=== PATIENT | female | born 1970 | race Caucasian/White ===

== ENCOUNTER 2024-11-19 10:15 | Inpatient (IN) | payer MEDICAID ==
[~2024-11-19] VITALS: Ht 172.7 cm; Wt 62.2 kg
[~2024-11-19 10:15] MED LIST: CEPH500C PO; CYAN500T25 PO; FLUC200T50 PO; SPIR25TA PO
--- NOTE | 2024-11-19 10:34 | ED.PDOC ---
GI ASSESSMENT HPI Comments 54-year-old female with PMHx COPD, HTN, CVA, Renal Stones brought in by EMS presents with a chief complaint of abdominal pain and constipation. Patient states that her pain is localized to her LLQ, radiates "all over", describes her pain as sharp and intermittent, and rates her pain a 4/10. Patient mentions that she has been constipated for x 28 days, but reports having a little bowel movement recently. Patient endorses drinking alcohol today and smoking marijuana prior to EMS arrival. Patient also smokes cigarettes. No other symptoms or modifying factors present at this time. Chief Complaint: Abdominal Pain Time Seen by MD: 10:20 Reviewed Notes: Nurses Notes, Medications, Allergies Allergies: Coded Allergies: Codeine (Verified Allergy, Unknown, 06/30/24) Home Meds Active Scripts Cephalexin Monohydrate (Cephalexin) 500 Mg Cap, 1 CAP PO TID for 7 Days, #21 CAP Prov:YECENIA RILEY MD 07/03/24 Fluconazole (Fluconazole) 200 Mg Tab, 200 MG PO DAILY for 7 Days, #7 TAB Prov:YECENIA RILEY MD 07/03/24 Cyanocobalamin (Vitamin B-12) 500 Mcg Tab, 500 MCG PO DAILY for 30 Days, #30 TAB 3 Refills Prov:YECENIA RILEY MD 07/03/24 Spironolactone (Aldactone) 25 Mg Tab, 50 MG PO DAILY for 30 Days, #30 TAB 3 Refills Prov:YECENIA RILEY MD 07/03/24 Information Source: Patient, Emergency Med Personnel Mode of Arrival: EMS Timing: Days Duration: Since onset Prehospital treatment: None Quality: Sharp Vomitus: None Stool: Impaction Severity: Moderate Recent: None Recent Hx of: None Pain Location: LLQ Associated sign and symptoms: Constipation, Abdominal Pain Past Medical History PAST MEDICAL HISTORY: Arthritis, COPD, CVA, Kidney Stones, UTI'S 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: Denies all 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 Hx Family History Family History: Unknown Social History Smoker: Cigarettes Alcohol: Heavy Drugs: Marijuana Lives In: Home Constitutional: denies: chills, diaphoresis, fatigue, fever, malaise, sweats, weakness, others EENTM: denies: blurred vision, double vision, ear bleeding, ear discharge, ear drainage, ear pain, ear ringing, eye pain, eye redness, hearing loss, mouth pain, mouth swelling, nasal discharge, nose bleeding, nose congestion, nose pain, photophobia, tearing, throat pain, throat swelling, voice changes, others Respiratory: denies: cough, hemoptysis, orthopnea, SOB at rest, shortness of breath, SOB with excertion, stridor, wheezing, others Cardiovascular: denies: chest pain, dizzy spells, diaphoresis, Dyspnea on exertion, edema, irregular heart beat, left arm pain, lightheadedness, palpitations, PND, syncope, others Gastrointestinal: reports: abdominal pain, constipated; denies: abdomen distended, blood streaked bowels, diarrhea, dysphagia, difficulty swallowing, hematemesis, melena, nausea, poor appetite, poor fluid intake, rectal bleeding, rectal pain, vomiting, others Genitourinary: denies: abnormal vagina bleeding, burning, dyspareunia, dysuria, flank pain, frequency, hematuria, incontinence, pain, , vagina discharge, urgency, others Neurological: denies: dizziness, fainting, headache, left sided numbness, left sided weakness, numbness, paresthesia, pre-existing deficit, right sided numbness, right sided weakness, seizure, speech problems, tingling, tremors, weakness, others Musculoskeletal: denies: back pain, gout, joint pain, joint swelling, muscle pain, muscle stiffness, neck pain, others Integumetry: denies: bruises, change in color, change in hair/nails, dryness, laceration, lesions, lumps, rash, wounds, others Allergic/Immunocompromised: denies: Difficulty Healing, Frequent Infections, Hives, Itching, others Hematologic/Lymphatic: denies: anemia, blood clots, easy bleeding, easy bruising, swollen glands, others Endocrine: denies: excessive hunger, excessive sweating, excessive thirst, excessive urination, flushing, intolerance to cold, intolerance to heat, unexplained weight gain, unexplained weight loss, others Psychiatric: denies: anxiety, bipolar disorder, depression, hopeless, panic disorder, schizophrenia, sleepless, suicidal, others All Other Systems: Reviewed and Negative Physical Exam General Appearance: Moderate Distress HEENT: Normal ENT Inspection, Pharynx Normal, TMs Normal Neck: Full Range of Motion, Non-Tender, Normal, Normal Inspection Respiratory: Chest Non-Tender, Lungs Clear, No Accessory Muscle Use, No Respiratory Distress, Normal Breath Sounds Cardiovascular: No Edema, No JVD, No Murmur, No Gallop, Normal Peripheral Pulses, Regular Rate/Rhythm Breast Exam: Deferred Gastrointestinal: LLQ, No Organomegaly, No Pulsatile Mass, Normal Bowel Sounds, RLQ, Soft, Tenderness Genitalia: Deferred Pelvic: Deferred Rectal: Deferred Extremities: No calf tenderness, Normal capillary refill, Normal inspection, Normal range of motion, Non-tender, No pedal edema Musculoskeletal : Apperance: Normal Neurologic: Alert, gang worker II-XII nml as Tested, No Motor Deficits, Normal Affect, Normal Mood, No Sensory Deficits Cerebellar Function: Normal Reflexes: Normal Skin: Dry, Normal Color, Warm Lymphatic: No Adenopathy EKG EKG : Pulse Rate (adult): 91 [place]: LAD Cardiac Rhythm: NSR Block: None Hypertrophy: None ST: Normal Was a procedure done? Was a procedure done?: No GI differential Dx Differential Diagnosis: Cholangitis, Cholecystitis, Diverticular disease, Gastritis/PUD, Gastroenteritis, Inflammatory BD, Ischemic Bowel, Electrolyte Imbalance, Food Poisoning X-Ray, Labs, Meds, VS Vital Signs Date Time Temp Pulse Resp B/P (MAP) Pulse Ox O2 Delivery O2 Flow Rate FiO2 11/19/24 14:05 121 18 136/95 11/19/24 13:32 121 18 95 Room Air* 0 21 11/19/24 13:29 97.9 121 18 106/57 (73) 99 97.9 11/19/24 10:34 91 11/19/24 10:27 91 11/19/24 10:26 97.6 79 16 99/60 (73) 98 Lab Test 11/19/24 10:42 Range/Units White Blood Count 6.3 4.4-10.8 10^3/uL Red Blood Count 4.23 4.0-5.20 10^6/uL Hemoglobin 15.1 12.2-16.2 g/dL Hematocrit 44.8 36.0-46.0 % Mean Corpuscular Volume 105.9 H 80.0-100.0 fL Mean Corpuscular Hemoglobin 35.6 H 28.0-32.0 pg Mean Corpuscular Hemoglobin Concent 33.6 32.0-36.0 g/dL Red Cell Distribution Width 14.1 11.8-14.3 % Platelet Count 207 140-450 10^3/uL Mean Platelet Volume 7.6 6.9-10.8 fL Neutrophils (%) (Auto) 74.3 37.0-80.0 % Lymphocytes (%) (Auto) 14.4 10.0-50.0 % Monocytes (%) (Auto) 9.8 0.0-12.0 % Eosinophils (%) (Auto) 1.0 0.0-7.0 % Basophils (%) (Auto) 0.5 0.0-2.0 % Neutrophils # (Auto) 4.7 1.6-8.6 10 ^3/uL Lymphocytes # (Auto) 0.9 0.4-5.4 10 ^3/uL Monocytes # (Auto) 0.6 0-1.3 10 ^3/uL Eosinophils # (Auto) 0.1 0-0.8 10 ^3/uL Basophils # (Auto) 0 0-0.2 10 ^3/uL Nucleated Red Blood Cells 0.2 % Sodium Level 130 L 136-145 mmol/L Potassium Level 2.9 L 3.5-5.1 mmol/L Chloride Level 89 L 98-107 mmol/L Carbon Dioxide Level 30 20-31 mmol/L Anion Gap 11 5-15 Blood Urea Nitrogen 9 9-23 mg/dL Creatinine 0.55 0.550-1.02 mg/dL Glomerular Filtration Rate Calc 108 >90 mL/min BUN/Creatinine Ratio 16.4 10.0-20.0 Serum Glucose 94 74-106 mg/dL Calcium Level 10.2 8.7-10.4 mg/dL Total Bilirubin 0.8 0.2-1.0 mg/dL Aspartate Amino Transferase (AST) 24 13-40 U/L Alanine Aminotransferase (ALT) 13 7-40 U/L Alkaline Phosphatase 74 46-116 U/L Total Protein 7.4 5.7-8.2 g/dL Albumin 4.4 3.2-4.8 g/dL Lipase 24 12-53 U/L Current Medications Medications (Trade) Dose Ordered Sig/Kaya Route Start Time Stop Time Status Last Admin Ondansetron HCl (Zofran) 4 mg ONCE ONCE IV 11/19/24 10:30 11/19/24 10:31 DC 11/19/24 13:20 Morphine Sulfate 4 mg ONCE ONCE IV 11/19/24 10:30 11/19/24 10:31 DC 11/19/24 14:05 Sodium Chloride 500 ml @ 500 mls/hr Q1H ONCE IVB 11/19/24 10:30 11/19/24 11:29 DC 11/19/24 13:20 CT scan of the abdomen and pelvis shows: IMPRESSION: 1. No acute abdominal or pelvic findings. No hydronephrosis or nephrolithiasis. Cholelithiasis. Avascular necrosis of the bilateral femoral heads. The patient's CBC is within normal limits IV Hep-Lock was established The patient was given morphine 4 mg IV push for the pain The patient was given Zofran 4 mg IV push for the nausea The patient was bolused with normal saline at 500 cc The patient's CBC is within normal limits The chemistry panel shows hypokalemia at 2.9 The chloride level is 89 The patient was being admitted at this time. The patient was being given potassium as a K rider Images Reviewed?: Images reviewed and evaluated by me Time of 1ST Reevaluation: 10:50 Reevaluation 1ST: Unchanged Patient Education/Counseling: Diagnosis, Treatment, Prognosis Family Education/Counseling: Diagnosis, Treatment, Prognosis Departure 1 Departure Time of Disposition: 14:30 Impression: Primary Impression: Intractable abdominal pain Additional Impression: Hypokalemia Disposition: 09 ADMITTED INPATIENT Admit to: [facility] Condition: Fair Critical Care Note Critical Care Time?: No Stability Stability form required: Yes Unstable for transfer: Telemetry monitoring (Telemetry monitoring required), ED Physician Assesment (Clinical assesment) Heart Score Heart Score: Heart Score Response (Comments) Value History N/A 0 EKG N/A 0 Age N/A 0 Risk Factors N/A 0 Troponin N/A 0 Total 0 I personally scribed for RASHARD DIAZ MD ([email or web address]) on 11/19/24 at 10:34. Electronically submitted by Ciro Reich ([email or web address]). RASHARD DIAZ MD Nov 19, 2024 10:34
[2024-11-19 11:11] LABS: Basophils # (auto) 0 10 ^3/uL (0-0.2); Eosinophils # (auto) 0.1 10 ^3/uL (0-0.8); Hemoglobin 15.1 g/dL (12.2-16.2); Monocytes # (auto) 0.6 10 ^3/uL (0-1.3); Neutrophils # (auto) 4.7 10 ^3/uL (1.6-8.6); Nucleated Red Blood Cells % 0.2 %; White Blood Cell 6.3 10^3/uL (4.4-10.8)
[2024-11-19 11:13] LABS: Basophils % (auto) 0.5 % (0.0-2.0); Hematocrit 44.8 % (36.0-46.0); Lymphocytes # (auto) 0.9 10 ^3/uL (0.4-5.4); Lymphocytes % (auto) 14.4 % (10.0-50.0); Mean Corpuscular Hemoglobin 35.6 pg (28.0-32.0); Mean Corpuscular Hgb Conc. 33.6 g/dL (32.0-36.0); Mean Corpuscular Volume 105.9 fL (80.0-100.0); Monocytes % (auto) 9.8 % (0.0-12.0); Neutrophils % (auto) 74.3 % (37.0-80.0); Platelet Count (auto) 207 10^3/uL (140-450); Red Blood Cells 4.23 10^6/uL (4.0-5.20); Red Cell Distribution Width 14.1 % (11.8-14.3)
--- NOTE | 2024-11-19 11:14 | DVH ---
Exam: CT CT AB PEL WO CON-NO ORAL OR IV History: LLQ PAIN Comparison Study: None Technique: Multidetector spiral CT of the abdomen and pelvis was performed from lung bases to pubic symphysis. Imaging was performed without IV contrast. Axial, coronal and sagittal multiplanar reform ats were obtained from the axial data set by the technologist. Radiation dose : Abdomen/Pelvis: CTDIvol 5 mGy, DLP 264.42 mGy*cm. Findings: Evaluation of solid organs is limited due to lack of intravenous contrast use. Lung Bases: No acute or significant lung base finding. Normal heart size. No pleural or pericardial effusion. Liver: The liver is normal in size. No focal lesions. Gallbladder and biliary Tree: Cholelithiasis noted without secondary findings of cholecystitis or nick iary obstruction. Spleen: Unremarkable Pancreas: The pancreas is grossly normal in appearance. Adrenal Glands: Unremarkable Kidneys: Kidneys are grossly normal without calculi or hydronephrosis. Bladder: Bladder is decompressed with a Dorman catheter and cannot be adequately assessed. Bowel: The stomach is grossly normal in appearance. Small bowel and colon are normal in caliber and d istribution. The appendix is not visualized; however, no secondary findings of acute appendicitis id entified. Ascites: Absent Lymphadenopathy: No mesenteric, retroperitoneal or periportal lymphadenopathy. Abdominal wall and Mesentery: Unremarkable. Vasculature: The visualized abdominal aorta is normal in size and caliber. Evaluation of abdominal a nd pelvic vessels is limited due to lack of intravenous contrast. Pelvic Organs: Unremarkable Musculoskeletal: Levoscoliosis with associated multilevel degenerative disease. Suspect avascular nec rosis of the bilateral femoral heads. IMPRESSION: 1. No acute abdominal or pelvic findings. No hydronephrosis or nephrolithiasis. Cholelithiasis. Avasc ular necrosis of the bilateral femoral heads. Radiation optimization: All CT scans at this facility use at least one of these dose optimization lita hniques: Automated exposure control mA and/or kV adjustment per patient size (includes targeted exams where dose is matched to clinical indication) or iterative reconstruction. HS:Y
[2024-11-19 11:31] LABS: Alanine Aminotransferase 13 U/L (7-40); Albumin 4.4 g/dL (3.2-4.8); Alkaline Phosphatase 74 U/L (46-116); Anion Gap 11 (5-15); Aspartate Aminotransferase 24 U/L (13-40); BUN/Creatinine Ratio 16.4 (10.0-20.0); Blood Urea Nitrogen 9 mg/dL (9-23); Glucose 94 mg/dL (74-106)
[2024-11-19 11:32] LABS: Bilirubin, Total 0.8 mg/dL (0.2-1.0); Total Protein 7.4 g/dL (5.7-8.2)
[2024-11-19 11:40] LABS: Calcium 10.2 mg/dL (8.7-10.4); Carbon Dioxide 30 mmol/L (20-31); Chloride 89 mmol/L (98-107); Potassium 2.9 mmol/L (3.5-5.1); Sodium 130 mmol/L (136-145)
[2024-11-19 12:16] LABS: Lipase 24 U/L (12-53)
[2024-11-19] MEDS: SODIUM CHLORIDE 0.9% 500 ML IVB ONE (13:20)
[2024-11-19] MEDS: ONDANSETRON HCL 4 MG/2 ML VIAL IV ONE (13:20)
[2024-11-19 13:32] VITALS: PULSE 121; RESP 18; O2SAT 95
[2024-11-19] MEDS: MORPHINE SULFATE 4 MG/ML SYR/VIAL IV ONE (14:05)
--- NOTE | 2024-11-19 19:02 | ECG ---
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
[2024-11-19] MEDS: POTASSIUM CHL 20MEQ/100ML 100 ML IV ONE (20:33)
[2024-11-19] MEDS ORDERED: ONDANSETRON HCL 4 MG/2 ML VIAL IV PRN (22:30)
[2024-11-19] MEDS ORDERED: VANCOMYCIN PER PHARMACY 0 MG IV SCH (22:30)
--- NOTE | 2024-11-19 22:38 | DVHHPRES ---
History of Present Illness Resident Creating Document: JOHN GALLO RESIDENT Reason for Visit: ABDOMINAL PAIN AND CONSTIPATION History of Present Illness This is a 54-year-old female who comes into the ED with chief complain of abdominal pain and constipation. She has a past medical history relevant for COPD, hypertension, CVA 20 years ago, bed-bound, kidney stones, recurrent UTIs. Patient states been a heavy drinker, heavy nicotine smoker, previous abuse of cannabis and methamphetamines. She has a history of tubal ligation and spinal surgery. Patient stated that for the last three days she has been experiencing worsening abdominal pain, mainly suprapubic, sharp, fluctuating from mild to severe, localized, nonradiating, associated with dysuria, urinary frequency and urgency. She also stated not having a bowel movement in the last 20 days due to being constipated. She also mentions having chills, nausea, malaise. Patient also endorses having left foot pain most prominent on hallux, along with purulent drainage, bilateral leg swelling, redness. In the ED patient received morphine, Zofran IV, normal saline, potassium IV, she has not abdominal CT which demonstrated cholelithiasis, bilateral avascular necrosis of femoral head. Patient was admitted for further workup and management. 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: CVA Past Surgical History Spinal surgery Smoke: <1 pack per day ALCOHOL: heavy Drugs: Marijuana Review of Systems Constitutional: Yes: Chills, Malaise; No: Fever, Sweats, Weakness, Other Eyes: No: Pain, Vision change, Conjunctivae inflammation, Eyelid inflammation, Other, Redness ENT: No: Ear pain, Ear discharge, Nose pain, Nose discharge, Nose congestion, Mouth pain, Mouth swelling, Throat pain, Throat swelling, Other Respiratory: No: Cough, Dry, Shortness of breath, SOB with excertion, Wheezing, Hemoptysis, Pleuritic Pain, Sputum, Wheezing, Other Cardiovascular: Edema; No: Chest Pain, Palpitations, Orthopnea, Paroxysmal Noc. Dyspnea, Lt Headedness, Other Gastrointestinal: Nausea, Abdominal Pain, Constipation; No: Vomiting, Diarrhea, Melena, Hematochezia, Other Genitourinary: Dysuria, Frequency, Incontinence; No Hematuria, No Retention, No Other Musculoskeletal: No: other, neck pain, shoulder pain, arm pain, back pain, hand pain, leg pain, foot pain Skin: Rash, Lesions; No: Jaundice, Bruising, Other Neurological: No: Weakness, Numbness, Incoordination, Change in speech, Confusion, Seizures, Other Allergies: Coded Allergies: Codeine (Verified Allergy, Unknown, 06/30/24) Exam Vital Signs Vital Signs Date Time Temp Pulse Resp B/P (MAP) Pulse Ox O2 Delivery O2 Flow Rate FiO2 11/19/24 16:22 98.1 115 20 114/68 (83) 98 98.1 11/19/24 13:32 Room Air* 0 21 Exam Bilateral lower extremity edema, redness, dry scaly skin, left hallux is tender to palpation, draining purulent fluid General Appearance: Alert, Oriented X3, Cooperative, No acute distress HEENT: Atraumatic, PERRLA, EOMI Respiratory: Clear to auscultation, Normal air movement Cardiovascular: Regular rate, Normal S1, Normal S2, No murmurs Abdominal: Normal bowel sounds, Soft, Other (Suprapubic tenderness) Extremities: No clubbing, No cyanosis, Other (Bilateral lower extremity edema plus two) Neuro: Other Psych/Mental Status: Mental status NL, Mood NL Labs/Xrays Labs Test 11/19/24 10:42 Range/Units White Blood Count 6.3 4.4-10.8 10^3/uL Red Blood Count 4.23 4.0-5.20 10^6/uL Hemoglobin 15.1 12.2-16.2 g/dL Hematocrit 44.8 36.0-46.0 % Mean Corpuscular Volume 105.9 H 80.0-100.0 fL Mean Corpuscular Hemoglobin 35.6 H 28.0-32.0 pg Mean Corpuscular Hemoglobin Concent 33.6 32.0-36.0 g/dL Red Cell Distribution Width 14.1 11.8-14.3 % Platelet Count 207 140-450 10^3/uL Mean Platelet Volume 7.6 6.9-10.8 fL Neutrophils (%) (Auto) 74.3 37.0-80.0 % Lymphocytes (%) (Auto) 14.4 10.0-50.0 % Monocytes (%) (Auto) 9.8 0.0-12.0 % Eosinophils (%) (Auto) 1.0 0.0-7.0 % Basophils (%) (Auto) 0.5 0.0-2.0 % Neutrophils # (Auto) 4.7 1.6-8.6 10 ^3/uL Lymphocytes # (Auto) 0.9 0.4-5.4 10 ^3/uL Monocytes # (Auto) 0.6 0-1.3 10 ^3/uL Eosinophils # (Auto) 0.1 0-0.8 10 ^3/uL Basophils # (Auto) 0 0-0.2 10 ^3/uL Nucleated Red Blood Cells 0.2 % Sodium Level 130 L 136-145 mmol/L Potassium Level 2.9 L 3.5-5.1 mmol/L Chloride Level 89 L 98-107 mmol/L Carbon Dioxide Level 30 20-31 mmol/L Anion Gap 11 5-15 Blood Urea Nitrogen 9 9-23 mg/dL Creatinine 0.55 0.550-1.02 mg/dL Glomerular Filtration Rate Calc 108 >90 mL/min BUN/Creatinine Ratio 16.4 10.0-20.0 Serum Glucose 94 74-106 mg/dL Calcium Level 10.2 8.7-10.4 mg/dL Total Bilirubin 0.8 0.2-1.0 mg/dL Aspartate Amino Transferase (AST) 24 13-40 U/L Alanine Aminotransferase (ALT) 13 7-40 U/L Alkaline Phosphatase 74 46-116 U/L Total Protein 7.4 5.7-8.2 g/dL Albumin 4.4 3.2-4.8 g/dL Lipase 24 12-53 U/L Assessment/Plan Assessment/Plan #Abdominal pain due to UTI, constipation Rocephin IV q.d. Pending UA and urine culture Admit to med surge Full liquid diet Pain management p.r.n. #Constipation Dulcolax Lactulose Tap water enema #Cellulitis of both lower legs #Left hallux ulcer, rule out osteomyelitis #Sacral ulcer stage II Vancomycin IV Wound culture Wound consult MRSA swab Reviewed CT on left foot, ordered MRI Order CRP and ESR Lower extremity Doppler ruled out DVT #Hypokalemia Monitor and replete Pending magnesium #Hypotonic hyponatremia Normal saline given #Cholelithiasis, no cholecystitis Monitor #Hypertension, controlled Monitor #COPD, stable DuoNebs q.6 hours p.r.n. #History of CVA #Bed-bound Prophylactic Lovenox #Avascular necrosis of bilateral femoral heads Monitor #Heavy alcohol abuse #Heavy smoker #History of polysubstance abuse UDS pending Pending phosphate Counseled on lifestyle modifications Goals of care were discussed for over 30 minutes. Full code Case was discussed with Dr. Kaba Plan discussed with: Patient My Orders Orders - JOHN GALLO RESIDENT Procedure Category Date Status Time Admit ADMIT 11/19/24 Transmitted 22:12 Notify Of Changes MAREK 11/19/24 In Process From Base 22:12 Full Liq Diet DIET 11/20/24 Transmitted Breakfast Urinalysis LAB 11/19/24 Transmitted 22:19 Urine Bacterial KAM 11/19/24 Transmitted Culture 22:19 Bilat Lower Dvt US 11/19/24 Logged 22:19 Erythrocyte LAB 11/19/24 Transmitted Sedimentation Rate 22:19 C-Reactive Protein LAB 11/19/24 Transmitted 22:19 Ct L Foot Wo Contrast CT 11/19/24 Logged 22:19 Wound Culture W/ Gs KAM 11/19/24 Transmitted 22:19 * Wound Consult CONS 11/19/24 Transmitted Potassium Er Tablet PHA 11/19/24 Transmitted (Klor-Con Tablet) 22:30 Magnesium LAB 11/19/24 Transmitted 22:19 Thyroid Stimulating LAB 11/19/24 Transmitted Hormone 22:19 Complete Blood Count LAB 11/20/24 Verified 04:00 Basic Metabolic Panel LAB 11/20/24 Verified 04:00 Chest Portable XY 11/19/24 Logged 22:19 Lactulose Oral PHA 11/19/24 Transmitted 22:30 Tap Water Enema ORDERS 11/19/24 Transmitted 22:19 Bisacodyl Ec Tablet PHA 11/19/24 Transmitted (Dulcolax Ec Tablet) 22:30 Ondansetron Hcl PHA 11/19/24 Transmitted (Zofran) 22:30 Vancomycin Per PHA 11/19/24 Transmitted Pharmacy 22:30 Ceftriaxone Ivpb PHA 11/20/24 Transmitted Rocephin 09:00 Ceftriaxone Ivpb PHA 11/19/24 Transmitted Rocephin 22:30 NS PHA 11/19/24 Transmitted 22:30 Mrsa Screen KAM 11/19/24 Transmitted 22:19 Date of Service: Nov 20, 2024 Billing Provider: FRAN KABA MD Common Visit Codes: [id number] INP/OBS CARE (HIGH) JOHN GALLO RESIDENT Nov 19, 2024 22:38 FRAN KABA MD Nov 23, 2024 14:44
[2024-11-19] MEDS: SODIUM CHLORIDE 0.9% 1,000 ML IV ONE (22:53)
[2024-11-19 22:57] VITALS: PULSE 102; RESP 16; O2SAT 99
[2024-11-19] MEDS: VANCOMYCIN 1GM/250mL NS or D5W KIT IV ONE (23:00)
--- NOTE | 2024-11-19 23:08 | DVH ---
CHEST RADIOGRAPH Indication: sob Technique: Single frontal view of the chest was obtained COMPARISON: XY CHEST PORTABLE on DOS: 07/01/24 FINDINGS: Lines and Tubes: None Lungs: Clear Pleura: No effusion. No pneumothorax. Cardiomediastinal contours: Unremarkable Bones: Unremarkable IMPRESSION: 1. No acute disease.
[2024-11-19] MEDS: LACTULOSE 20Gm/30ML SOLN PO ONE (23:23)
[2024-11-19] MEDS: cefTRIAXone 1GM/50ML D5W 50 ML IV ONE (23:23)
[2024-11-19] MEDS: BISACODYL 5 MG EC TAB PO ONE (23:23)
[2024-11-19] MEDS: POTASSIUM CHL 20 Meq TABLET PO ONE (23:23)
--- NOTE | 2024-11-19 23:47 | DVH ---
EXAMINATION: CT L FOOT WO CONTRAST INDICATION: cellulitis, r/o osteomyelitis COMPARISON: None TECHNIQUE: CT of the rightleft foot was performed without contrast. Volume transverse images were obt ained reconstructed in multiple planes using bone and soft tissue algorithms. CONTRAST: None FINDINGS: There is a large amount of subcutaneous edema and there is mari fluid along the posterior compartmen t fascia. Foot bones are osteopenic in the amount dorsal fluid and foot is extraordinary. Do not see definite destructive change involving the foot bones but I would highly recommend MRI examination 2 l imited quality osteomyelitis. IMPRESSION: 1. Severe cellulitis. Follow-up MRI examination is suggested further assessment
[2024-11-20] VITALS (11 sets, daily range): BP systolic 99–140; BP diastolic 59–100; PULSE 66–115; RESP 16–19; TEMP 97.1–98.1; O2SAT 93–100
[2024-11-20 00:01] LABS: CRP High Sensitivity 0.7 mg/dL (<1.0)
[2024-11-20 00:16] LABS: Erythrocyte Sedimentation Rate 13 mm/hr (0-20)
--- NOTE | 2024-11-20 00:17 | DVH ---
Bilateral lower extremity venous duplex Clinical History: bilateral leg edema, redness, and pain Comparison: US BILAT LOWER DVT on DOS: 06/30/24 Technique: Duplex doppler evaluation of the deep venous systems of both lower extremities from the common femora l veins to the popliteal veins including color doppler and spectral/pulsed waveform analysis was perf ormed. Findings: RIGHT SIDE: The common femoral vein demonstrates appropriate compressibility and waveform variability. There is compressibility/patency of the great saphenous vein at the proximal thigh. The femoral vein demonstrates appropriate compressibility and waveform variability. The deep femoral vein demonstrates appropriate compressibility and waveform variability. The popliteal vein demonstrates appropriate compressibility and waveform variability. LEFT SIDE: The common femoral vein demonstrates appropriate compressibility and waveform variability. There is compressibility/patency of the great saphenous vein at the proximal thigh. The femoral vein demonstrates appropriate compressibility and waveform variability. The deep femoral vein demonstrates appropriate compressibility and waveform variability. The popliteal vein demonstrates appropriate compressibility and waveform variability. Impression: No evidence of right or left femoropopliteal venous thrombosis.
[2024-11-20] MEDS: ENOXAPARIN SOD 40 MG/0.4 ML SYRINGE SC ONE (00:39)
[2024-11-20] MEDS: KETOROLAC TROMETH 30 MG/ML 1ML VIAL IV ONE (00:40)
[2024-11-20 05:46] LABS: Basophils # (auto) 0 10 ^3/uL (0-0.2); Eosinophils # (auto) 0.1 10 ^3/uL (0-0.8); Hematocrit 35.8 % (36.0-46.0); Hemoglobin 12.3 g/dL (12.2-16.2); Lymphocytes # (auto) 1.2 10 ^3/uL (0.4-5.4); Mean Corpuscular Volume 105.8 fL (80.0-100.0); Monocytes # (auto) 0.5 10 ^3/uL (0-1.3); Nucleated Red Blood Cells % 0.1 %; Red Blood Cells 3.38 10^6/uL (4.0-5.20)
[2024-11-20 05:49] LABS: Basophils % (auto) 0.6 % (0.0-2.0); Eosinophils % (auto) 1.9 % (0.0-7.0); Lymphocytes % (auto) 21.6 % (10.0-50.0); Mean Corpuscular Hemoglobin 36.4 pg (28.0-32.0); Mean Corpuscular Hgb Conc. 34.4 g/dL (32.0-36.0); Monocytes % (auto) 9.1 % (0.0-12.0); Neutrophils # (auto) 3.7 10 ^3/uL (1.6-8.6); Neutrophils % (auto) 66.8 % (37.0-80.0); Platelet Count (auto) 176 10^3/uL (140-450); White Blood Cell 5.6 10^3/uL (4.4-10.8)
[2024-11-20 06:08] LABS: Anion Gap 7 (5-15); Carbon Dioxide 30 mmol/L (20-31)
[2024-11-20 06:11] LABS: Calcium 8.4 mg/dL (8.7-10.4); Chloride 97 mmol/L (98-107); Potassium 3.1 mmol/L (3.5-5.1); Sodium 134 mmol/L (136-145)
[2024-11-20 06:14] LABS: Blood Urea Nitrogen 9 mg/dL (9-23); Glucose 98 mg/dL (74-106)
[2024-11-20 06:16] LABS: Phosphorus 2.7 mg/dL (2.4-5.1)
[2024-11-20] MEDS: LEVALBUTEROL HCL 1.25 MG/3 ML NEB ONE (06:44)
[2024-11-20] MEDS: IPRATROPIUM BROM 0.5 MG/2.5ML INH SOL ONE (06:44)
[2024-11-20] MEDS: IPRATROPIUM BROM 0.5 MG/2.5ML INH SOL NEB PRN (06:48)
[2024-11-20] MEDS: LEVALBUTEROL HCL 1.25 MG/3 ML NEB NEB SCH (06:48)
[2024-11-20 06:56] LABS: Urine Bacteria FEW /hpf (None Seen); Urine Blood 2+ /uL (Negative); Urine Budding Yeast OCCASIONAL /hpf (None Seen); Urine Clarity Cloudy (Clear); Urine Color Yellow (Yellow); Urine Hyphae Yeast PRESENT /hpf; Urine Mucus FEW (None Seen); Urine Protein, UAD 1+ (Negative); Urine Specific Gravity 1.019 (1.001-1.035); Urine Squamous Epithelial Cell MOD /hpf (<5); Urine Urobilinogen Normal (Negative); Urine WBC 1508 /HPF (0-5); Urine WBC Clumps PRESENT /hpf (None Seen)
[2024-11-20] MEDS: POTASSIUM CHL 20 Meq TABLET PO ONE (07:04)
[2024-11-20 07:17] LABS: Amphetamine Screen, Urine Neg (NEGATIVE); Phencyclidine Screen, Urine Neg (NEGATIVE)
[2024-11-20 07:18] LABS: Barbiturate Scree,Urine Neg (NEGATIVE); Benzodiazephine Screen, Urine Neg (NEGATIVE); Cannabinoid Screen, Urine Pos (NEGATIVE); Cocaine Screen, Urine Neg (NEGATIVE); Opiate Scree,Urine Pos (NEGATIVE)
[2024-11-20] MEDS: VANCOMYCIN 1GM/250ML KIT 0 ML IV ONE (11:17)
[2024-11-20] MEDS ORDERED: LACT10PA2 PO (11:36)
[2024-11-20] MEDS ORDERED: FURO1TAB31 PO (11:36)
[2024-11-20] MEDS ORDERED: NALO1TAB4 PO (11:36)
[2024-11-20] MEDS ORDERED: POTA8TAB38 PO (11:36)
[2024-11-20] MEDS ORDERED: DOCU-94 PO (11:36)
[2024-11-20] MEDS ORDERED: MAGN400T40 PO (11:36)
[2024-11-20] MEDS: FLEET ENEMA(ADULT) 135 ML PR ONE (12:00)
[2024-11-20] MEDS: FLUCONAZOLE 100 MG TAB PO SCH (12:03)
[2024-11-20] MEDS: VANCOMYCIN 1.25GM/250ML 250 ML IV SCH (12:04)
[2024-11-20] MEDS: GABAPENTIN 400 MG CAP PO SCH (16:40)
--- NOTE | 2024-11-20 17:06 | DVH ---
EXAM: MRI MRI L FOOT WO CONTRAST HISTORY: r/o left foot osteomyelitis COMPARISON: CT CT L FOOT WO CONTRAST on DOS: 11/19/24 TECHNIQUE: Multiplanar, multisequence MRI of the left foot was performed. FINDINGS: The visualized osseous structures demonstrate normal cortical and bone marrow signal intensity withou t evidence of fracture, trabecular bony injury, or dislocation. No joint effusion. Hallux sesamoid co mplex is intact. No joint effusion. The Lisfranc ligament is intact. The visualized portions of tibialis posterior, flexor hallucis longus, and flexor digitorum tendons a re intact. Visualized portions of peroneus longus and brevis tendons are intact. Visualized portion s of the tibialis anterior, extensor digitorum, and extensor hallucis tendons are intact. The partially visualized plantar fascia is intact. There is no evidence of intermetatarsal bursitis or Martin's neuroma. No significant muscle atrophy is noted. Severe dorsal soft tissue swelling noted. A 1.6 x 1 cm subcutaneous fluid collection on do rsal aspect of the foot at the level of 1st metatarsal base noted. IMPRESSION: 1. Severe subcutaneous edema/ cellulitis. 2. A 1.6 cm dorsal subcutaneous fluid collection that is incompletely evaluated on this unenhanced st udy. A may reflect seroma, abscess or ganglion cyst. Correlation by ultrasound or contrast enhanced M RI could be completed if clinically indicated. 3. No evidence of acute osteomyelitis.
[2024-11-20] MEDS: ASPirin 81 mg TAB PO ONE (18:20)
[2024-11-20] MEDS: FUROSEMIDE 40 MG TAB PO ONE (18:20)
--- NOTE | 2024-11-20 18:21 | DVHPNRES ---
Progress Note Date Seen: Nov 20, 2024 Resident Creating Document: MAHAMED THOMAS RESIDENT Medical Necessity Reason Pt with a Central, PICC or Fol: Yes The following are medically ne: Dorman Catheter Subjective Review of Systems Patient is a 54-year-old female with a past medical history of COPD, hypertension, paraplegia since 2001 valve bed-bound due to ?spinal abscess/CVA, recurrent UTIs came to the ED with a chief complaint of abdominal pain and constipation. Patient reported that since the last 3 days she has been experiencing worsening abdominal pain mainly suprapubic sharp, fluctuating from mild to severe, localized, nonradiating associated with dysuria. She reported that last bowel movement was 20 in days ago. Patient home takes [place] 7.5 tid but reports to be taking more when she was pain. Patient reports that her legs were also swollen up and she has a wound on the left hallux. Past surgical history: Spinal surgery in 2011, tubal ligation Social history: Patient drinks 1 pt of vodka every day, cigarette smoking previous history of cannabis and methamphetamine use Home medication: Furosemide 40 mg daily, gabapentin 400 mg t.i.d., tizanidine 4 mg q.6 hours, [place] 7.5 mg t.i.d., aspirin Review of systems Patient seen and examined at bedside Reports passing large hard ball of stool about 3 days ago and reports passing flatness currently Denies shortness of breath, palpitations, chest pain, headache, dizziness. Reports pain in the left foot and reports having sacral ulcer. Objective vital signs Vital Sign Date Time Temp Pulse Resp B/P (MAP) Pulse Ox O2 Delivery O2 Flow Rate FiO2 11/20/24 16:47 77 19 99/59 (72) 95 11/20/24 09:07 Room Air* 0 21 11/20/24 09:00 97.1 97.1 Total Intake and Output 11/19/24 11/19/24 11/20/24 15:00 23:00 07:00 Intake Total 100 ml 1300 ml Balance 100 ml 1300 ml medications Current Medications Medications Dose Ordered Sig/Kaya Route Start Time Stop Time Status Last Admin Dose Admin Ondansetron HCl 4 mg Q4HPRN PRN IV 11/19/24 22:30 Vancomycin HCl 0 ml @ 0 mls/hr UD IV 11/19/24 22:30 Ceftriaxone Sodium 50 ml @ 100 mls/hr Q24H IV 11/20/24 21:00 Enoxaparin Sodium 40 mg DAILY SC 11/21/24 10:00 Acetaminophen 650 mg Q6HP PRN PO 11/20/24 00:15 Levalbuterol HCl 0.625 mg Q6HP NEB 11/20/24 06:00 11/20/24 06:48 0.625 MG Ipratropium [place] 0.5 mg Q6HPRN PRN NEB 11/20/24 01:45 11/20/24 06:48 0.5 MG Fluconazole 200 mg DAILY PO 11/20/24 10:00 11/20/24 12:03 200 MG Vancomycin HCl 250 ml @ 200 mls/hr Q12H IV 11/20/24 12:00 11/20/24 12:04 200 MLS/HR Aspirin 81 mg DAILY PO 11/21/24 10:00 Gabapentin 400 mg TID PO 11/20/24 14:00 11/20/24 16:40 400 MG Polyethylene Glycol 17 gm DAILY PO 11/21/24 10:00 Furosemide 40 mg DAILY PO 11/21/24 10:00 Examination Physical Examination Constitutional: Patient is alert and oriented to time, place and person and does not to be in acute distress Gen - no pallor, no icterus, no cyanosis, no clubbing, no LAD, bilateral 2+ pitting edema Skin - Patients skin is warm and dry. HEENT - normocephalic, atraumatic, moist mucous membranes. Neck - full ROM, no LAD, no JVD Pulmonary - B/L decreased breath. no crackles , no wheezing cardiovascular - normal S1,S2 heard. no murmurs heard. GI - soft abdomen without tenderness to palpation . no hepatospleenomegaly. Bowel sounds normoactive Neurological - Bilateral upper extremity strength 5/5, bilateral lower extremity strength 1/5, no facial droop, normal speech, no tremor, no sensory deficiets. laboratory and microbiology Laboratory Tests 11/20/24 04:22 Test 11/20/24 04:22 Range/Units Serum Glucose 98 74-106 mg/dL Microbiology Date/Time Source Procedure Growth Status 11/20/24 01:30 Foot Gram Stain - Final Resulted 11/20/24 01:30 Foot Wound Culture Pending Resulted Problem List/Assessment/Plan Problem List/Assessment/Plan #Abdominal pain due to UTI, constipation # UTI likely acute cystitis Rocephin IV q.d. UA positive for LE and elevated WBC Full liquid diet given oral laxatives fleet enema norco and tizanidine held Pain management p.r.n. #Cellulitis of both lower legs #Left hallux ulcer, rule out osteomyelitis #Sacral ulcer stage II Vancomycin and ceftriaxone IV Wound culture pending Wound consult MRSA swab Reviewed CT on left foot, left foor MRI showed 1.Severe subcutaneous edema/ cellulitis. 2. A 1.6 cm dorsal subcutaneous fluid collection that is incompletely evaluated on this unenhanced study. A may reflect seroma, abscess or ganglion cyst. Correlation by ultrasound or contrast enhanced MRI could be completed if clinically indicated. 3. No evidence of acute osteomyelitis. Lower extremity Doppler ruled out DVT #Hypokalemia Monitor and replete #Hypotonic hyponatremia Normal saline given #Cholelithiasis, no cholecystitis Monitor #Hypertension, controlled Monitor #COPD, stable DuoNebs q.6 hours p.r.n. #History of CVA #Bed-bound Prophylactic Lovenox #Avascular necrosis of bilateral femoral heads Monitor #Heavy alcohol abuse #Heavy smoker #History of polysubstance abuse UDS- positive for opioid and cannabis Counseled on lifestyle modifications Goals of care were discussed for over 27 minutes. Full code Case was discussed with Dr. Kaba Plan discussed with: Patient My Orders My Orders Orders - MAHAMED THOMAS RESIDENT Procedure Category Date Status Time Fluconazole Tablet PHA 11/20/24 In Process (Diflucan Tablet) 10:00 Blood Culture KAM 11/20/24 Uncollected 11:47 Aspirin Tablet PHA 11/21/24 In Process 10:00 Gabapentin Capsule PHA 11/20/24 In Process (Neurontin Capsule) 14:00 Polyethylene Glycol PHA 11/21/24 In Process 17g Powder (Miralax 10:00 Furosemide Tablet PHA 11/21/24 In Process (Lasix Tablet) 10:00 * Stemmer Machine CONS 11/20/24 Transmitted Consult Cleanse Wound With MAREK 11/20/24 In Process Wound Clean 12:45 * Dietary Consult CONS 11/20/24 Transmitted 15:13 Code Status CODE 11/20/24 Transmitted 17:24 Date of Service: Nov 20, 2024 Billing Provider: FRAN KABA MD Common Visit Codes: [id number] INP/OBS CARE(HIGH) MAHAMED THOMAS RESIDENT Nov 20, 2024 18:21 FRAN KABA MD Nov 23, 2024 14:44
[2024-11-20] MEDS: SODIUM CHLORIDE 0.9% 500 ML IV ONE (18:22)
[2024-11-20] MEDS: cefTRIAXone 1GM/50ML D5W 50 ML IV SCH (21:55)
[2024-11-21] VITALS (13 sets, daily range): BP systolic 101–131; BP diastolic 66–79; PULSE 74–110; RESP 16–20; TEMP 97.7–98; O2SAT 92–100
[2024-11-21 07:31] LABS: Basophils # (auto) 0 10 ^3/uL (0-0.2); Eosinophils # (auto) 0.1 10 ^3/uL (0-0.8); Lymphocytes # (auto) 1.2 10 ^3/uL (0.4-5.4); Neutrophils # (auto) 4.6 10 ^3/uL (1.6-8.6)
[2024-11-21 07:32] LABS: Anion Gap 9 (5-15); Carbon Dioxide 28 mmol/L (20-31); Chloride 98 mmol/L (98-107); Potassium 3.6 mmol/L (3.5-5.1); Sodium 135 mmol/L (136-145)
[2024-11-21 07:36] LABS: Basophils % (auto) 0.6 % (0.0-2.0); Eosinophils % (auto) 2.1 % (0.0-7.0); Hematocrit 39.1 % (36.0-46.0); Hemoglobin 13.4 g/dL (12.2-16.2); Lymphocytes % (auto) 18.5 % (10.0-50.0); Mean Corpuscular Hemoglobin 36.4 pg (28.0-32.0); Mean Corpuscular Hgb Conc. 34.2 g/dL (32.0-36.0); Mean Corpuscular Volume 106.5 fL (80.0-100.0); Monocytes # (auto) 0.5 10 ^3/uL (0-1.3); Monocytes % (auto) 7.1 % (0.0-12.0); Neutrophils % (auto) 71.7 % (37.0-80.0); Platelet Count (auto) 177 10^3/uL (140-450); Red Blood Cells 3.67 10^6/uL (4.0-5.20); Red Cell Distribution Width 14.4 % (11.8-14.3); White Blood Cell 6.5 10^3/uL (4.4-10.8)
[2024-11-21 07:38] LABS: Glucose 74 mg/dL (74-106)
[2024-11-21 07:40] LABS: BUN/Creatinine Ratio 9.6 (10.0-20.0); Blood Urea Nitrogen < 5 mg/dL (9-23)
[2024-11-21] MEDS: POLYETHYLENE GLYCOL 17 GM PWDR PO SCH (10:17)
[2024-11-21] MEDS: FUROSEMIDE 40 MG TAB PO SCH (10:18)
[2024-11-21] MEDS: ASPirin 81 mg TAB PO SCH (10:18)
[2024-11-21] MEDS: ENOXAPARIN SOD 40 MG/0.4 ML SYRINGE SC SCH (10:19)
--- NOTE | 2024-11-21 16:54 | DVHPNRES ---
Progress Note Date Seen: Nov 21, 2024 Resident Creating Document: JHRadhaJMAHAMED Lawrence RESIDENT Medical Necessity Reason Pt with a Central, PICC or Fol: Yes The following are medically ne: Dorman Catheter Subjective Review of Systems Patient seen and examined at bedside Reports that she had 3 bowel movements today and has mild discomfort in the left lower quadrant. Feels better than yesterday Has mild discomfort in the left foot in the area of the ulcer Objective vital signs Vital Sign Date Time Temp Pulse Resp B/P (MAP) Pulse Ox O2 Delivery O2 Flow Rate FiO2 11/21/24 16:30 98.0 90 17 120/78 (92) 96 98.0 11/21/24 08:00 Room Air* 0 21 Total Intake and Output 11/20/24 11/20/24 11/21/24 15:00 23:00 07:00 Intake Total 600 ml 710 ml Output Total 300 ml 3025 ml Balance 300 ml -2315 ml medications Current Medications Medications Dose Ordered Sig/Kaya Route Start Time Stop Time Status Last Admin Dose Admin Ondansetron HCl 4 mg Q4HPRN PRN IV 11/19/24 22:30 Vancomycin HCl 0 ml @ 0 mls/hr UD IV 11/19/24 22:30 Ceftriaxone Sodium 50 ml @ 100 mls/hr Q24H IV 11/20/24 21:00 11/20/24 21:55 100 MLS/HR Enoxaparin Sodium 40 mg DAILY SC 11/21/24 10:00 11/21/24 10:19 40 MG Acetaminophen 650 mg Q6HP PRN PO 11/20/24 00:15 Levalbuterol HCl 0.625 mg Q6HP NEB 11/20/24 06:00 11/21/24 12:28 0.625 MG Ipratropium [place] 0.5 mg Q6HPRN PRN NEB 11/20/24 01:45 11/21/24 12:28 0.5 MG Fluconazole 200 mg DAILY PO 11/20/24 10:00 11/21/24 10:18 200 MG Vancomycin HCl 250 ml @ 200 mls/hr Q12H IV 11/20/24 12:00 11/21/24 11:06 200 MLS/HR Aspirin 81 mg DAILY PO 11/21/24 10:00 11/21/24 10:18 81 MG Gabapentin 400 mg TID PO 11/20/24 14:00 11/21/24 14:11 400 MG Polyethylene Glycol 17 gm DAILY PO 11/21/24 10:00 11/21/24 10:17 17 GM Furosemide 40 mg DAILY PO 11/21/24 10:00 11/21/24 10:18 40 MG Patient Own Medication 1 TID PO 11/21/24 15:45 Mupirocin 1 applic BID EACHNOSTRI 11/21/24 22:00 11/26/24 21:59 Mupirocin 1 applic BID EACHNOSTRI 11/21/24 22:00 11/26/24 21:59 UNV Examination Constitutional: Patient is alert and oriented to time, place and person and does not to be in acute distress Gen - no pallor, no icterus, no cyanosis, no clubbing, no LAD, bilateral 2+ pitting edema Skin - Patients skin is warm and dry. HEENT - normocephalic, atraumatic, moist mucous membranes. Neck - full ROM, no LAD, no JVD Pulmonary - B/L decreased breath sounds. no crackles , no wheezing cardiovascular - normal S1,S2 heard. no murmurs heard. GI - soft abdomen without tenderness to palpation . no hepatospleenomegaly. Bowel sounds normoactive Neurological - Bilateral upper extremity strength 5/5, bilateral lower extremity strength 2/5, no facial droop, normal speech, no tremor, no sensory deficiets. laboratory and microbiology Laboratory Tests 11/21/24 06:32 Test 11/21/24 06:32 Range/Units Serum Glucose 74 74-106 mg/dL Microbiology Date/Time Source Procedure Growth Status 11/20/24 21:54 Nose MRSA Screen - Final Methicillin Resistant S.aureus Complete 11/20/24 05:46 Voided Urine Urine Culture - Preliminary Resulted Problem List/Assessment/Plan Problem List/Assessment/Plan #Abdominal pain due constipation likely due to opioid overuse # UTI likely acute cystitis Rocephin IV q.d. Fluconazole 200 mg UA positive for LE and elevated WBC Full liquid diet given oral laxatives fleet enema denied by patient norco held #Cellulitis of both lower legs #Left hallux ulcer, rule out osteomyelitis #Sacral ulcer stage III Vancomycin and ceftriaxone IV Wound culture growing Gram-negative rods, Staph aureus , identification and susceptibility to follow Wound consult MRSA positive Reviewed CT on left foot left foor MRI showed 1.Severe subcutaneous edema/ cellulitis. 2. A 1.6 cm dorsal subcutaneous fluid collection that is incompletely evaluated on this unenhanced study. A may reflect seroma, abscess or ganglion cyst. Correlation by ultrasound or contrast enhanced MRI could be completed if clinically indicated. 3. No evidence of acute osteomyelitis. Lower extremity Doppler ruled out DVT #Hypokalemia Monitor and replete #Hypotonic hyponatremia Normal saline given #Cholelithiasis, no cholecystitis Monitor #Hypertension, controlled Monitor #COPD, stable DuoNebs q.6 hours p.r.n. #History of CVA #Bed-bound Prophylactic Lovenox #Avascular necrosis of bilateral femoral heads Monitor #Heavy alcohol abuse #Heavy smoker #History of polysubstance abuse UDS- positive for opioid and cannabis Counseled on lifestyle modifications Goals of care were discussed for over 23 minutes. Full code Case was discussed with Dr. Delgado Plan discussed with: Patient My Orders My Orders Orders - MAHAMED THOMAS Procedure Category Date Status Time Code Status CODE 11/20/24 Transmitted 17:24 Wound Culture W/ Gs KAM 11/20/24 Logged 23:09 Regular Diet DIET 11/21/24 Transmitted Lunch Patients Own PHA 11/21/24 In Process Medication 15:45 Mupirocin 2% Oint PHA 11/21/24 Transmitted Mrsa Nares (Bactroban 22:00 Dietary Evaluation Review Comments: Increase physical movement if possible, Angel BID for wound healing. Expected Outcomes/Goals: gradual wt loss, healed wound. Date of Service: Nov 21, 2024 Billing Provider: FRAN DELGADO MD Common Visit Codes: [id number] INP/OBS CARE(HIGH) MAHAMED THOMAS RESIDENT Nov 21, 2024 16:54 FRAN DELGADO MD Nov 23, 2024 14:45
[2024-11-21] MEDS ORDERED: MUPIROCIN 2% OINT 15gm or 22gm FOR MRSA NARES EACHNOSTRI SCH (22:00)
[2024-11-21] MEDS: MUPIROCIN 2% OINT 15gm or 22gm FOR MRSA NARES EACHNOSTRI SCH (22:00)
[2024-11-21] MEDS: CYCLOBENZAPRINE HCL 10 MG TAB PO SCH (22:20)
[2024-11-22] VITALS (15 sets, daily range): BP systolic 89–149; BP diastolic 52–96; PULSE 60–96; RESP 14–20; TEMP 97.7–98.9; O2SAT 93–100
[2024-11-22 06:00] LABS: Basophils # (auto) 0 10 ^3/uL (0-0.2); Basophils % (auto) 0.8 % (0.0-2.0); Eosinophils # (auto) 0.2 10 ^3/uL (0-0.8); Eosinophils % (auto) 3.5 % (0.0-7.0); Hemoglobin 12.4 g/dL (12.2-16.2); Lymphocytes # (auto) 1.4 10 ^3/uL (0.4-5.4); Lymphocytes % (auto) 30.6 % (10.0-50.0); Mean Corpuscular Hemoglobin 36.7 pg (28.0-32.0); Mean Corpuscular Hgb Conc. 34.5 g/dL (32.0-36.0); Mean Corpuscular Volume 106.4 fL (80.0-100.0); Monocytes # (auto) 0.4 10 ^3/uL (0-1.3); Monocytes % (auto) 8.6 % (0.0-12.0); Neutrophils # (auto) 2.5 10 ^3/uL (1.6-8.6); Neutrophils % (auto) 56.5 % (37.0-80.0); Platelet Count (auto) 176 10^3/uL (140-450); Red Blood Cells 3.38 10^6/uL (4.0-5.20); White Blood Cell 4.4 10^3/uL (4.4-10.8)
[2024-11-22 06:13] LABS: Chloride 100 mmol/L (98-107); Potassium 3.8 mmol/L (3.5-5.1); Sodium 140 mmol/L (136-145)
[2024-11-22 06:14] LABS: Anion Gap 5 (5-15); Calcium 9.3 mg/dL (8.7-10.4)
[2024-11-22 06:19] LABS: BUN/Creatinine Ratio 11.1 (10.0-20.0); Blood Urea Nitrogen 6 mg/dL (9-23); Carbon Dioxide 35 mmol/L (20-31); Glucose 86 mg/dL (74-106)
--- NOTE | 2024-11-22 10:04 | DVHPNRES ---
Progress Note Date Seen: Nov 22, 2024 Resident Creating Document: JOSE CHEN RESIDENT Medical Necessity Reason Pt with a Central, PICC or Fol: Yes The following are medically ne: Dorman Catheter Subjective Review of Systems This is a 54-year-old female who comes into the ED with chief complain of abdominal pain and constipation. She has a past medical history relevant for COPD, hypertension, CVA 20 years ago, bed-bound, kidney stones, recurrent UTIs. Patient states been a heavy drinker, heavy nicotine smoker, previous abuse of cannabis and methamphetamines. She has a history of tubal ligation and spinal surgery. Patient stated that for the last three days she has been experiencing worsening abdominal pain, mainly suprapubic, sharp, fluctuating from mild to severe, localized, nonradiating, associated with dysuria, urinary frequency and urgency. She also stated not having a bowel movement in the last 20 days due to being constipated. She also mentions having chills, nausea, malaise. Patient also endorses having left foot pain most prominent on hallux, along with purulent drainage, bilateral leg swelling, redness. In the ED patient received morphine, Zofran IV, normal saline, potassium IV, she has not abdominal CT which demonstrated cholelithiasis, bilateral avascular necrosis of femoral head. Patient was admitted for further workup and management. 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 Past Surgical History Spinal surgery Smoke: <1 pack per day ALCOHOL: heavy Drugs: Marijuana Objective vital signs Vital Sign Date Time Temp Pulse Resp B/P (MAP) Pulse Ox O2 Delivery O2 Flow Rate FiO2 11/22/24 09:00 98.5 85 16 149/96 (113) 98 98.5 11/22/24 07:00 Room Air* 0 21 Total Intake and Output 11/21/24 11/21/24 11/22/24 15:00 23:00 07:00 Intake Total 650 ml 700 ml Output Total 2400 ml 2100 ml Balance -1750 ml -1400 ml medications Current Medications Medications Dose Ordered Sig/Kaya Route Start Time Stop Time Status Last Admin Dose Admin Ondansetron HCl 4 mg Q4HPRN PRN IV 11/19/24 22:30 Vancomycin HCl 0 ml @ 0 mls/hr UD IV 11/19/24 22:30 Ceftriaxone Sodium 50 ml @ 100 mls/hr Q24H IV 11/20/24 21:00 11/21/24 20:43 100 MLS/HR Enoxaparin Sodium 40 mg DAILY SC 11/21/24 10:00 11/21/24 10:19 40 MG Acetaminophen 650 mg Q6HP PRN PO 11/20/24 00:15 Levalbuterol HCl 0.625 mg Q6HP NEB 11/20/24 06:00 11/22/24 07:00 0.625 MG Ipratropium [place] 0.5 mg Q6HPRN PRN NEB 11/20/24 01:45 11/22/24 06:59 0.5 MG Fluconazole 200 mg DAILY PO 11/20/24 10:00 11/21/24 10:18 200 MG Vancomycin HCl 250 ml @ 200 mls/hr Q12H IV 11/20/24 12:00 11/21/24 11:06 200 MLS/HR Aspirin 81 mg DAILY PO 11/21/24 10:00 11/21/24 10:18 81 MG Gabapentin 400 mg TID PO 11/20/24 14:00 11/22/24 05:48 400 MG Polyethylene Glycol 17 gm DAILY PO 11/21/24 10:00 11/21/24 10:17 17 GM Furosemide 40 mg DAILY PO 11/21/24 10:00 11/21/24 10:18 40 MG Patient Own Medication 1 TID PO 11/21/24 15:45 Hold Mupirocin 1 applic BID EACHNOSTRI 11/21/24 22:00 11/26/24 21:59 Cyclobenzaprine HCl 10 mg Q8HR PO 11/21/24 22:00 11/22/24 05:48 10 MG Examination Bilateral lower extremity edema, redness, dry scaly skin, left hallux is tender to palpation, draining purulent fluid General Appearance: Alert, Oriented X3, Cooperative, No acute distress HEENT: Atraumatic, PERRLA, EOMI Respiratory: Clear to auscultation, Normal air movement Cardiovascular: Regular rate, Normal S1, Normal S2, No murmurs Abdominal: Normal bowel sounds, Soft, Other (Suprapubic tenderness) Extremities: No clubbing, No cyanosis, Other (Bilateral lower extremity edema plus two) Neuro: Other Psych/Mental Status: Mental status NL, Mood NL laboratory and microbiology Laboratory Tests 11/22/24 05:49 Test 11/22/24 05:49 Range/Units Serum Glucose 86 74-106 mg/dL Microbiology Date/Time Source Procedure Growth Status 11/20/24 21:54 Nose MRSA Screen - Final Methicillin Resistant S.aureus Complete 11/20/24 05:46 Voided Urine Urine Culture - Preliminary Resulted Problem List/Assessment/Plan Problem List/Assessment/Plan #Abdominal pain due to UTI, constipation Rocephin IV q.d. Pending urine culture Regular diet Pain management p.r.n. #Constipation resolved #Cellulitis of both lower legs #Left hallux ulcer, rule out osteomyelitis #Sacral ulcer stage II Vancomycin IV Wound culture Wound consult MRSA swab MRI: 1.6 possible abscess: Podiatry consult CRP and ESR neg Lower extremity Doppler normal #Hypokalemia resolved Monitor and replete magnesium normal #Hypotonic hyponatremia resolved Normal saline given #Cholelithiasis, no cholecystitis Monitor #Hypertension, controlled Monitor #COPD, stable DuoNebs q.6 hours p.r.n. #History of CVA #Bed-bound Prophylactic Lovenox #Avascular necrosis of bilateral femoral heads Monitor #Heavy alcohol abuse #Heavy smoker #History of polysubstance abuse UDS: + for opiods and CBD phosphate 2.7 Counseled on lifestyle modifications Goals of care were discussed for over 30 minutes. Full code Case was discussed with Dr. Kaba Plan discussed with: Patient, Other (rn) My Orders My Orders Orders - JOSE CHEN RESIDENT Procedure Category Date Status Time *Podiatry Consult CONS 11/22/24 Transmitted [place]([facility]) 09:17 Dietary Evaluation Review Comments: Increase physical movement if possible, Angel BID for wound healing. Expected Outcomes/Goals: gradual wt loss, healed wound. Date of Service: Nov 22, 2024 Billing Provider: FRAN KABA MD Common Visit Codes: [id number] INP/OBS CARE(HIGH) JOSE CHEN RESIDENT Nov 22, 2024 10:04 FRAN KABA MD Nov 23, 2024 14:45
[2024-11-22] MEDS: VANCOMYCIN 750MG KIT 100 ML IV SCH (15:00)
[2024-11-22] MEDS: KETOROLAC TROMETH 30 MG/ML 1ML VIAL IV PRN (15:52)
[2024-11-23] VITALS (15 sets, daily range): BP systolic 89–116; BP diastolic 45–72; PULSE 58–78; RESP 16–20; TEMP 97.3–97.8; O2SAT 95–100
--- NOTE | 2024-11-23 16:13 | DVHPNRES ---
Progress Note Date Seen: Nov 23, 2024 Resident Creating Document: JHRadhaJMAHAMED Lawrence RESIDENT Medical Necessity Reason Pt with a Central, PICC or Fol: Yes The following are medically ne: [place] Catheter Subjective Review of Systems Patient seen and examined at bedside denies abdominal pain, no bowel movement since yesterday Patient denies pain in the left foot Objective vital signs Vital Sign Date Time Temp Pulse Resp B/P (MAP) Pulse Ox O2 Delivery O2 Flow Rate FiO2 11/23/24 13:00 97.3 66 18 89/52 (64) 98 97.3 11/23/24 11:45 Room Air 11/23/24 11:45 0 21 Total Intake and Output 11/22/24 11/22/24 11/23/24 15:00 23:00 07:00 Intake Total 1380 ml 850 ml Output Total 900 ml 900 ml Balance 480 ml -50 ml medications Current Medications Medications Dose Ordered Sig/Kaya Route Start Time Stop Time Status Last Admin Dose Admin Ondansetron HCl 4 mg Q4HPRN PRN IV 11/19/24 22:30 Vancomycin HCl 0 ml @ 0 mls/hr UD IV 11/19/24 22:30 Ceftriaxone Sodium 50 ml @ 100 mls/hr Q24H IV 11/20/24 21:00 11/22/24 21:00 100 MLS/HR Enoxaparin Sodium 40 mg DAILY SC 11/21/24 10:00 11/23/24 10:59 40 MG Acetaminophen 650 mg Q6HP PRN PO 11/20/24 00:15 Levalbuterol HCl 0.625 mg Q6HP NEB 11/20/24 06:00 11/23/24 11:45 0.625 MG Ipratropium [place] 0.5 mg Q6HPRN PRN NEB 11/20/24 01:45 11/22/24 12:14 0.5 MG Fluconazole 200 mg DAILY PO 11/20/24 10:00 11/23/24 10:59 200 MG Aspirin 81 mg DAILY PO 11/21/24 10:00 11/23/24 10:59 81 MG Gabapentin 400 mg TID PO 11/20/24 14:00 11/23/24 15:06 400 MG Polyethylene Glycol 17 gm DAILY PO 11/21/24 10:00 11/23/24 10:58 17 GM Furosemide 40 mg DAILY PO 11/21/24 10:00 11/23/24 11:00 40 MG Patient Own Medication 1 TID PO 11/21/24 15:45 Hold Mupirocin 1 applic BID EACHNOSTRI 11/21/24 22:00 11/26/24 21:59 11/23/24 10:00 1 APPLIC Cyclobenzaprine HCl 10 mg Q8HR PO 11/21/24 22:00 11/23/24 15:06 10 MG Vancomycin HCl 100 ml @ 100 mls/hr Q12H IV 11/22/24 15:00 11/23/24 15:06 100 MLS/HR Ketorolac Tromethamine 15 mg Q6HPRN PRN IV 11/22/24 15:00 11/27/24 14:59 11/23/24 11:04 15 MG Examination Constitutional: Patient is alert and oriented to time, place and person and does not to be in acute distress Gen - no pallor, no icterus, no cyanosis, no clubbing, no LAD, bilateral 2+ pitting edema Skin - Patients skin is warm and dry. HEENT - normocephalic, atraumatic, moist mucous membranes. Neck - full ROM, no LAD, no JVD Pulmonary - B/L decreased breath sounds. no crackles , no wheezing cardiovascular - normal S1,S2 heard. no murmurs heard. GI - soft abdomen without tenderness to palpation . no hepatospleenomegaly. Bowel sounds normoactive Neurological - Bilateral upper extremity strength 5/5, bilateral lower extremity strength 2/5, no facial droop, normal speech, no tremor, no sensory deficiets. Sacrum- patient has a wound in the coccyx area around 2x1 cm. extremeties- wound on the dorsal surface of the hallux laboratory and microbiology Laboratory Tests 11/23/24 05:43 11/22/24 05:49 Test 11/22/24 05:49 Range/Units Serum Glucose 86 74-106 mg/dL Microbiology Date/Time Source Procedure Growth Status 11/22/24 08:30 Blood Blood Culture - Preliminary NO GROWTH AFTER 24 HOURS OF INCUBATION. Resulted 11/20/24 21:54 Nose MRSA Screen - Final Methicillin Resistant S.aureus Complete 11/20/24 05:46 Voided Urine Urine Culture - Final Complete Problem List/Assessment/Plan Problem List/Assessment/Plan #Abdominal pain due constipation likely due to opioid overuse regular diet given oral laxatives fleet enema denied by patient norco held # UTI likely acute cystitis UA positive for LE and elevated WBC final urine cultures grow gram +ve rhonda, patient has a chronic amezcua catheter with monthly changes #Cellulitis of both lower legs #Left hallux ulcer, rule out osteomyelitis #Sacral ulcer stage III Vancomycin IV Wound culture from the left foot growing acenitobacter lwoffi and MRSA. started on cefepime IV MRSA positive Reviewed CT on left foot left foor MRI showed 1.Severe subcutaneous edema/ cellulitis. 2. A 1.6 cm dorsal subcutaneous fluid collection that is incompletely evaluated on this unenhanced study. A may reflect seroma, abscess or ganglion cyst. Correlation by ultrasound or contrast enhanced MRI could be completed if clinically indicated. 3. No evidence of acute osteomyelitis. Lower extremity Doppler ruled out DVT Patient evaluated by podiatry, I&D tomorrow #Hypokalemia Monitor and replete #Cholelithiasis, no cholecystitis Monitor #COPD, stable DuoNebs q.6 hours p.r.n. # ?H/o spinal abscess #Bed-bound Prophylactic Lovenox #Avascular necrosis of bilateral femoral heads Monitor #Heavy alcohol abuse #Heavy smoker #History of polysubstance abuse UDS- positive for opioid and cannabis Counseled on lifestyle modifications Goals of care were discussed for over 23 minutes. Full code Case was discussed with Dr. Delgado Plan discussed with: Patient Dietary Evaluation Review Comments: Increase physical movement if possible, Angel BID for wound healing. Expected Outcomes/Goals: gradual wt loss, healed wound. Date of Service: Nov 23, 2024 Billing Provider: FRAN DELGADO MD Common Visit Codes: [id number] INP/OBS CARE(HIGH) MAHAMED THOMAS RESIDENT Nov 23, 2024 16:13 FRAN DELGADO MD Nov 23, 2024 18:34
[2024-11-23] MEDS: CEFEPIME 2GM/50ML 50 ML IV SCH (21:32)
[2024-11-24] VITALS (14 sets, daily range): BP systolic 87–112; BP diastolic 54–72; PULSE 40–94; RESP 13–22; TEMP 97.4–98.5; O2SAT 94–100
[2024-11-24 07:07] LABS: Eosinophils # (auto) 0.2 10 ^3/uL (0-0.8); Lymphocytes # (auto) 1.6 10 ^3/uL (0.4-5.4); Monocytes # (auto) 0.4 10 ^3/uL (0-1.3); Neutrophils # (auto) 1.1 10 ^3/uL (1.6-8.6); Nucleated Red Blood Cells % 0.2 %
[2024-11-24 07:10] LABS: Basophils # (auto) 0.1 10 ^3/uL (0-0.2); Basophils % (auto) 1.7 % (0.0-2.0); Eosinophils % (auto) 6.1 % (0.0-7.0); Hemoglobin 11.9 g/dL (12.2-16.2); Lymphocytes % (auto) 47.9 % (10.0-50.0); Mean Corpuscular Hemoglobin 36.6 pg (28.0-32.0); Mean Corpuscular Volume 107.6 fL (80.0-100.0); Monocytes % (auto) 10.8 % (0.0-12.0); Neutrophils % (auto) 33.5 % (37.0-80.0); Platelet Count (auto) 174 10^3/uL (140-450); Red Blood Cells 3.26 10^6/uL (4.0-5.20); Red Cell Distribution Width 14.6 % (11.8-14.3); White Blood Cell 3.4 10^3/uL (4.4-10.8)
[2024-11-24 07:16] LABS: Anion Gap 7 (5-15); Chloride 102 mmol/L (98-107); Potassium 4.6 mmol/L (3.5-5.1); Sodium 140 mmol/L (136-145)
[2024-11-24 07:17] LABS: Calcium 9.5 mg/dL (8.7-10.4)
[2024-11-24 07:22] LABS: Blood Urea Nitrogen 9 mg/dL (9-23)
[2024-11-24 07:26] LABS: Carbon Dioxide 31 mmol/L (20-31); Glucose 66 mg/dL (74-106)
[2024-11-24] MEDS ORDERED: KETAMINE 50mg/ML 1ml syringe ONE (12:08)
[2024-11-24] MEDS ORDERED: GLYCOPYRROLATE 0.2 MG/ML 1ML VIAL ONE (12:09)
[2024-11-24] MEDS ORDERED: LIDOCAINE 2% (LOCAL ANESTH.) PF 5ml SDV ONE (12:09)
[2024-11-24] MEDS ORDERED: ONDANSETRON HCL 4 MG/2 ML VIAL ONE (12:09)
[2024-11-24] MEDS ORDERED: PROPOFOL 10 MG/ML 20 ML IV ONE (12:09)
[2024-11-24] MEDS ORDERED: MIDAZOLAM HCL 2MG/2ML 2ml VIAL (1mg/ml) ONE (12:09)
[2024-11-24] MEDS: BUPIVACAINE HCL 50 ML ONE (12:13)
--- NOTE | 2024-11-24 12:20 | DVHINCON2 ---
Date Seen: Nov 24, 2024 Reason for Consultation Left hallux wound History of Present Illness This is a 54-year-old female who comes into the ED with chief complain of abdominal pain and constipation. She has a past medical history relevant for COPD, hypertension, CVA 20 years ago, bed-bound, kidney stones, recurrent UTIs. Patient states been a heavy drinker, heavy nicotine smoker, previous abuse of cannabis and methamphetamines. She has a history of tubal ligation and spinal surgery. Patient stated that for the last three days she has been experiencing worsening abdominal pain, mainly suprapubic, sharp, fluctuating from mild to severe, localized, nonradiating, associated with dysuria, urinary frequency and urgency. She also stated not having a bowel movement in the last 20 days due to being constipated. She also mentions having chills, nausea, malaise. Patient also endorses having left foot pain most prominent on hallux, along with purulent drainage, bilateral leg swelling, redness. In the ED patient received morphine, Zofran IV, normal saline, potassium IV, she has not abdominal CT which demonstrated cholelithiasis, bilateral avascular necrosis of femoral head. Patient was admitted for further workup and management. Past Medical History See H&P Past Surgical History See H&P Family History: Cardiovascular disease G8 MOTHER FH: heart attack G8 MOTHER FH: rheumatoid arthritis Allergies: Coded Allergies: Codeine (Verified Allergy, Unknown, 06/30/24) Home Meds Reported Medications Lactulose (Lactulose) 10 Gm Demond, 10 GM PO DAILY, PACK 11/20/24 Magnesium Oxide (MAGNESIUM OXIDE) 400 Mg Tab, 1 TAB PO DAILY, #30 TAB 5 Refills 11/20/24 Naloxegol Oxalate (Movantik) 25 Mg Tab, 25 MG PO DAILY, TAB 11/20/24 Furosemide (Lasix) 40 Mg Tab, 40 MG PO DAILY, TAB 11/20/24 Docusate Sodium (Colace) 100 Mg Cap, 1 CAP PO DAILY, #30 CAP 11/20/24 Potassium Chloride (Klor-Con 8) 8 Meq Tab, 8 MEQ PO DAILY, TAB 11/20/24 Current Medications Current Medications Medications (Trade) Dose Ordered Sig/Kaya Route PRN Reason Start Time Stop Time Status Last Admin Cefepime/Dextrose 50 ml @ 12.5 mls/hr Q8HR IV 11/23/24 22:00 11/24/24 05:56 Vital Signs Vital Signs Date Time Temp Pulse Resp B/P (MAP) Pulse Ox O2 Delivery O2 Flow Rate FiO2 11/24/24 10:35 115/64 11/24/24 08:30 97.8 70 16 98 97.8 11/24/24 07:14 Room Air* 0 21 Physical Exam DERMATOLOGIC EXAM: - Skin is dry and cool to the touch dry bilaterally. - Nails 1-5 of the bilateral foot are thickened, discolored, dystrophic, and tender to palpate with subungual debris - Hair loss noted to bilateral feet Wound #1: Location: Left hallux Measurements: Length 1 cm x width 1 cm x depth1 cm. Wound margins: Hyperkeratotic. Wound base: Full thickness. General Appearance: Healthy and bleeding. Probes to Bone: No Purulent drainage: Y Serous drainage: No Erythema: Y VASCULAR EXAM: - DP and PT pulses are palpable bilaterally. 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 - Feet are cool to touch compared to lower legs bilaterally. NEUROLOGIC EXAM: - Normal light touch sensation to the superficial peroneal, deep peroneal, sural, saphenous, and tibial nerve branches. - Protective sensation is diminished as tested with a 5.07 10g Mur[place]-Javier bilaterally. MUSCULOSKELETAL EXAM: - No gross deformities - Muscle strength is 5/5 and active motion is pain-free and symmetrical bilaterally - No pain or crepitation with passive range of motion bilaterally to all major pedal joints Labs/Diagnostic Data Labs Test 11/24/24 06:11 11/24/24 01:45 11/22/24 13:17 11/22/24 05:49 Range/Units White Blood Count 3.4 L 4.4-10.8 10^3/uL Red Blood Count 3.26 L 4.0-5.20 10^6/uL Hemoglobin 11.9 L 12.2-16.2 g/dL Hematocrit 35.0 L 36.0-46.0 % Mean Corpuscular Volume 107.6 H 80.0-100.0 fL Mean Corpuscular Hemoglobin 36.6 H 28.0-32.0 pg Mean Corpuscular Hemoglobin Concent 34.0 32.0-36.0 g/dL Red Cell Distribution Width 14.6 H 11.8-14.3 % Platelet Count 174 140-450 10^3/uL Mean Platelet Volume 8.3 6.9-10.8 fL Neutrophils (%) (Auto) 33.5 L 37.0-80.0 % Lymphocytes (%) (Auto) 47.9 10.0-50.0 % Monocytes (%) (Auto) 10.8 0.0-12.0 % Eosinophils (%) (Auto) 6.1 0.0-7.0 % Basophils (%) (Auto) 1.7 0.0-2.0 % Neutrophils # (Auto) 1.1 L 1.6-8.6 10 ^3/uL Lymphocytes # (Auto) 1.6 0.4-5.4 10 ^3/uL Monocytes # (Auto) 0.4 0-1.3 10 ^3/uL Eosinophils # (Auto) 0.2 0-0.8 10 ^3/uL Basophils # (Auto) 0.1 0-0.2 10 ^3/uL Nucleated Red Blood Cells 0.2 % Sodium Level 140 136-145 mmol/L Potassium Level 4.6 3.5-5.1 mmol/L Chloride Level 102 98-107 mmol/L Carbon Dioxide Level 31 20-31 mmol/L Anion Gap 7 5-15 Blood Urea Nitrogen 9 9-23 mg/dL Creatinine 0.53 L 0.550-1.02 mg/dL Glomerular Filtration Rate Calc 109 >90 mL/min BUN/Creatinine Ratio 17.0 10.0-20.0 Serum Glucose 66 L 74-106 mg/dL Calcium Level 9.5 8.7-10.4 mg/dL Vancomycin Level Trough 24.3 H 5-10 ug/mL Random Vancomycin Level 12.5 H 5-10 ug/mL Vitamin B12 Level 634 211-911 pg/mL Test 11/20/24 05:46 11/20/24 04:22 11/19/24 23:19 11/19/24 10:42 Range/Units Urine Color Yellow Yellow Urine Clarity Cloudy H Clear Urine pH 6.0 5.0-9.0 Urine Specific [place] 1.019 1.001-1.035 Urine Protein 1+ H Negative Urine Ketones Trace Negative Urine Blood 2+ H Negative /uL Urine Nitrite 2+ H Negative Urine Bilirubin Negative Negative Urine Urobilinogen Normal Negative mg/dL Urine Leukocyte Esterase 3+ Negative /uL Urine RBC 46 0 - 4 /hpf Urine WBC Clumps Present None Seen /hpf Urine Microscopic WBC 1508 H 0-5 /HPF Urine Squamous Epithelial Cells Mod <5 /hpf Urine Bacteria Few H None Seen /hpf Urine Mucus Few None Seen Urine Yeast with Hyphae Present /hpf Urine Yeast (Budding) Occasional None Seen /hpf Urine Glucose Normal Normal mg/dL Urine Opiates Screen Pos NEGATIVE Urine Fentanyl Screen Neg NEGATIVE Urine Barbiturates Screen Neg NEGATIVE Urine Phencyclidine Screen Neg NEGATIVE Urine Amphetamines Screen Neg NEGATIVE Urine Benzodiazepines Screen Neg NEGATIVE Urine Cocaine Screen Neg NEGATIVE Urine Cannabinoids Screen Pos NEGATIVE Phosphorus Level 2.7 2.4-5.1 mg/dL Erythrocyte Sedimentation Rate 13 0-20 mm/hr Magnesium Level 2.0 1.6-2.6 mg/dL C-Reactive Protein High Sensitivity 0.70 <1.0 mg/dL Thyroid Stimulating Hormone (TSH) 0.96 0.55-4.78 uIU/mL Total Bilirubin 0.8 0.2-1.0 mg/dL Aspartate Amino Transferase (AST) 24 13-40 U/L Alanine Aminotransferase (ALT) 13 7-40 U/L Alkaline Phosphatase 74 46-116 U/L Total Protein 7.4 5.7-8.2 g/dL Albumin 4.4 3.2-4.8 g/dL Lipase 24 12-53 U/L Microbiology Date/Time Source Procedure Growth Status 11/22/24 08:30 Blood Blood Culture - Preliminary NO GROWTH AFTER 48 HOURS OF INCUBATION. Resulted 11/20/24 21:54 Nose MRSA Screen - Final Methicillin Resistant S.aureus Complete 11/20/24 05:46 Voided Urine Urine Culture - Final Complete Problems(with codes): (1) Cellulitis (2) Hypokalemia (3) Intractable abdominal pain Plan/Recommendation ASSESSMENT: Patient is a [age] year old seen on the floor for a worsening ulcer PLAN: - The patients chart was reviewed, clinical findings were discussed with the patient, the etiologies of the conditions were discussed in detail, and a treatment plan was agreed to at this time, with both oral and written instructions provided. - reviewed advanced imaging - discussed plan is to perform an incision and drainage - patient will be NPO at midnight - take him to the OR today - we will get cultures in the OR - can weightbear as tolerated in postoperative shoe All questions were answered and concerns addressed to the patient's satisfaction. The patient was given the phone number to the clinic and was told how to make contact with the clinic should any concerns or questions arise. Patient understands that if any questions or concerns arise prior to the next appointment, we should be contacted immediately. FOLLOW-UP: Continue to follow while inpatient Plan discussed with: Patient Date of Service: Nov 24, 2024 Billing Provider: SIXTO BAIN DPM Common Visit Codes: CONSULT ONLY Consultation Codes: [id number] CONSULT <80MIN SIXTO BAIN DPM Nov 24, 2024 12:20
--- NOTE | 2024-11-24 12:42 | DVHOP2 ---
Operative Report - 2 Report Details Date: 11/24/24 Preop Diagnosis: 1. Left foot abscess 2. Left foot cellulitis 3. Left foot diabetic ulcer Postop Diagnosis: Same as preop Surgeon: Sixto Hull MD Anesthesiologist: See anesthesia Anesthesia: Mac Consent: The patient was informed of the risks and benefits of the procedure. These include but are not limited to complications of anesthesia, postoperative infection, incomplete relief of symptoms, recurrence of symptoms, damage to blood vessels, nerves and tendons, deep venous thrombosis, pulmonary embolism and possible need for repeat surgery in the future. Complications: None Estimated Blood Loss: Minimal Fluids: See anesthesia Findings: Consistent diagnosis Indications for Surgery: Worsening left foot wounds Name of Procedure Performed 1. Left foot I&D to bone (29963) 2. Left foot delayed closure (88459) Procedure Details Procedure Details: PRE-PROCEDURE INFORMATION: In the pre-op holding area, the extremity to be operated on was clearly marked and the patient verified correct laterality of the marking. The patient was transferred to the OR table and placed in a supine position. A timeout was performed in which identification of the correct patient, procedure, location, and materials was done. The left foot and leg were prepped and draped in normal sterile fashion. DESCRIPTION OF PROCEDURE: Attention was directed to the left where area of fluctuance was noted. An incision was made over this area and was deepened through blunt dissection. The incision was deepened to the level of abscess and bone. Care was taken to the dissection to avoid any neurovascular and tendinous structures. The incision was deepened to the bone, and the abscess appeared to be purulent fluid consistent with pus. The cortices of the bone was then removed with Silver an all necrotic tissue. After the abscess was drained, the area was irrigated with 3 L normal saline using cysto tubing. Deep cultures were then obtained from the wound. The area was then inspected and any areas of tracking, especially along the tendons were also drained. A delayed closure was then performed using 2-0 nylon after was deemed appropriate with no longer con cern for infection. POSTOPERATIVE INFORMATION: The patient tolerated the above noted procedure and anesthesia well and was transferred to the PACU with vital signs stable, and vascular status intact with capillary refill intact to all digits. Patient can return to the floor. Continue cultures were taken. Patient can be discharged home on p.o. antibiotics. Condition Good Disposition Still a Patient MUSSON,SIXTO D DPM Nov 24, 2024 12:42
[2024-11-24] MEDS: ONDANSETRON HCL 4 MG/2 ML VIAL IV ONE (12:45)
[2024-11-24] MEDS ORDERED: HYDROmorphone HCL 2 MG/ML VL/or syr IV PRN (12:45)
--- NOTE | 2024-11-24 16:18 | DVHPNRES ---
Progress Note Date Seen: Nov 24, 2024 Resident Creating Document: TYLRE GONGORA RESIDENT Medical Necessity Reason Pt with a Central, PICC or Fol: Yes The following are medically ne: Dorman Catheter Subjective Review of Systems Tali Adair is a 54-year-old female who comes into the ED with chief complain of sharp/colicky suprapubic abdominal pain, urinary frequency, dysuria and constipation which has been worsening three days prior to her admission. Patient also reports chills, nausea and malaise, and nonhealing left foot ulcer permanently on the hallux with purulent drainage, bilateral leg swelling and erythema. Past medical history: Hypertension, COPD, CVA in 2004, bed-bound, kidney stones multiple UTIs. Surgical history: Spinal surgery Family history: Noncontributory Social history: Lives with [place] ([id number] ex ). Heavy ethanol abuse (one pt of vodka per day for the past 10 years). Tobacco abuse (approximately 30 pack history of smoking). History of cannabis and methamphetamine abuse. Denies other drug abuse. Allergies: Codeine Home medication: [place], gabapentin and aspirin. Patient seen and examined at bedside. Currently status post left foot debridement. Patient does complain of a mild tremors. Objective vital signs Vital Sign Date Time Temp Pulse Resp B/P (MAP) Pulse Ox O2 Delivery O2 Flow Rate FiO2 11/24/24 12:56 91 18 116/72 (87) 99 11/24/24 12:41 98.1 98.1 11/24/24 12:41 Mask 5.0 100 Total Intake and Output 11/23/24 11/23/24 11/24/24 15:00 23:00 07:00 Intake Total 400 ml 400 ml 600 ml Output Total 1500 ml 2000 ml Balance 400 ml -1100 ml -1400 ml medications Current Medications Medications Dose Ordered Sig/Kaya Route Start Time Stop Time Status Last Admin Dose Admin Ondansetron HCl 4 mg Q4HPRN PRN IV 11/19/24 22:30 Vancomycin HCl 0 ml @ 0 mls/hr UD IV 11/19/24 22:30 Enoxaparin Sodium 40 mg DAILY SC 11/21/24 10:00 11/23/24 10:59 40 MG Acetaminophen 650 mg Q6HP PRN PO 11/20/24 00:15 Levalbuterol HCl 0.625 mg Q6HP NEB 11/20/24 06:00 11/24/24 07:14 0.625 MG Ipratropium Thorp 0.5 mg Q6HPRN PRN NEB 11/20/24 01:45 11/24/24 07:14 0.5 MG Aspirin 81 mg DAILY PO 11/21/24 10:00 11/23/24 10:59 81 MG Gabapentin 400 mg TID PO 11/20/24 14:00 11/24/24 14:18 400 MG Polyethylene Glycol 17 gm DAILY PO 11/21/24 10:00 11/23/24 10:58 17 GM Furosemide 40 mg DAILY PO 11/21/24 10:00 11/24/24 10:35 40 MG Patient Own Medication 1 TID PO 11/21/24 15:45 Hold Mupirocin 1 applic BID EACHNOSTRI 11/21/24 22:00 11/26/24 21:59 11/24/24 10:00 1 APPLIC Cyclobenzaprine HCl 10 mg Q8HR PO 11/21/24 22:00 11/24/24 14:18 10 MG Ketorolac Tromethamine 15 mg Q6HPRN PRN IV 11/22/24 15:00 11/27/24 14:59 11/23/24 11:04 15 MG Cefepime/Dextrose 50 ml @ 12.5 mls/hr Q8HR IV 11/23/24 22:00 11/24/24 14:18 12.5 MLS/HR Folic Acid 1 mg/ Multivitamins 10 ml/Magnesium Sulfate 8 meq/ Thiamine HCl 100 mg/Dextrose 1,013.2 ml @ 125.001 mls/hr DAILY@1800 INJ 11/24/24 18:00 UNV Examination Patient lying in bed, in no acute distress General: Lucid, afebrile, mucosae are moist, mild tremors Cardiovascular: Normal S1 and S2. No murmurs, gallops or rubs Respiratory: Normal ventilation mechanics. Clear lung sounds on auscultation Abdomen: Soft, nontender, no organomegaly, normal bowel sounds MSK/skin: Mobilizes 4 limbs. Skin is dry and warm. Lower limb edema improved. Left foot wrapped in gauze. Sacral wound stage III (present on admission) Neurological: Oriented in 3 spheres. No motor no sensitive deficits. Pupils are isocoric and reactive laboratory and microbiology Laboratory Tests 11/24/24 06:11 Test 11/24/24 06:11 Range/Units Serum Glucose 66 L 74-106 mg/dL Microbiology Date/Time Source Procedure Growth Status 11/22/24 08:30 Blood Blood Culture - Preliminary NO GROWTH AFTER 48 HOURS OF INCUBATION. Resulted 11/20/24 21:54 Nose MRSA Screen - Final Methicillin Resistant S.aureus Complete 11/20/24 05:46 Voided Urine Urine Culture - Final Complete Problem List/Assessment/Plan Problem List/Assessment/Plan # UTI likely acute cystitis UA positive for LE and elevated WBC Final urine cultures: negative Patient has a chronic Dorman catheter with monthly changes On adjusted IV antibiotics (cefepime and vancomycin) # Abdominal pain due constipation likely due to opioid overuse Currently on regular diet and with given oral laxatives Fleet enema denied by patient Held Flagr UDS on admission positive for opiates and cannabinoids # Cellulitis of both lower legs On adjusted IV antibiotics (cefepime and vancomycin) # Non healing left hallux ulcer with abscess - status post op debridement Wound culture from the left foot growing Acinetobacter and MRSA. Nasal swab MRSA positive Completed Foot MRI which showed severe subcutaneous cellulitis, 1.6 cm dorsal subcutaneous fluid collection (compatible with seroma/abscess/gangrene cyst), ruled out osteomyelitis Evaluated by podiatry: Completed debridement, pending surgical culture results On adjusted IV antibiotics (cefepime and vancomycin) # Sacral ulcer stage III On adjusted IV antibiotics (cefepime and vancomycin) #Acute on chronic diastolic congestive heart failure (HFpEF, LVEF 55%) Currently on furosemide 40 mg p.o. daily, on admission requiring IV Lasix Last echocardiogram completed on 06/2024: Normal LV size and dimension, LVEF 55%, grade 1 diastolic dysfunction, rest of exam within normal limits. # Hypokalemia Monitor and replete # Cholelithiasis, no cholecystitis Monitor # COPD, stable Duo Nebs q.6 hours p.r.n. # History of spinal abscess s/p op, currently bed-bound Prophylactic Lovenox Completed lower limb Doppler which ruled out DVT # History of CVA Continue aspirin. Added atorvastatin 40mg PO daily # Avascular necrosis of bilateral femoral heads Evidence in abdomen and pelvis CT. Monitor # Polysubstance abuse Heavy alcohol and smoking abuse. Reports history of methamphetamine abuse UDS positive for opioid and cannabis Gave advice on healthy lifestyle habits Tobacco cessation was prompted, patient is interested in stopping tobacco abuse (on nicotine patches, insulin smoking four cigarettes history of one pack a day now). Patient signed AMA form to smoke cigarettes outside of the hospital. I have explained the risk of doing so, patient understands risks and takes full responsibility of her actions. # Alcohol withdrawal syndrome (CIWA score three points) Patient does not require any benzodiazepines at this point. Indicated banana bag Goals of care were discussed with patient for over 23 minutes: Full code status Case was discussed with Dr. Delgado, patient and nurses: Patient currently status post up from incision and drainage from abscess in left foot, pending results of culture to adjust IV antibiotic and evaluate need for prolonged IV antibiotic. If patient requires IV antibiotics, we will be a candidate for SNF placement due to polysubstance abuse. Plan discussed with: Patient My Orders My Orders Orders - TYLER GONGORA RESIDENT Procedure Category Date Status Time Folic Acid... PHA 11/24/24 Logged 18:00 Basic Metabolic Panel LAB 11/25/24 Verified 04:00 Dietary Evaluation Review Comments: Increase physical movement if possible, Angel BID for wound healing. Expected Outcomes/Goals: gradual wt loss, healed wound. Date of Service: Nov 24, 2024 Billing Provider: FRAN DELGADO MD Common Visit Codes: [id number] INP/OBS CARE(HIGH) TYLER GONGORA RESIDENT Nov 24, 2024 16:18 FRAN DLEGADO MD Nov 26, 2024 15:30
[2024-11-24] MEDS: FOLIC ACID 1 MG, MULTIPLE VITAMIN 10 ML, MAGNESIUM SULF SDV 50% 8 MEQ, THIAMINE INJ 100... INJ SCH (19:50)
[2024-11-24] MEDS: ATORVASTATIN 20 MG TAB PO SCH (23:41)
[2024-11-25] VITALS (18 sets, daily range): BP systolic 120–135; BP diastolic 64–86; PULSE 74–99; RESP 12–18; TEMP 97.3–99.3; O2SAT 93–100
[2024-11-25 06:22] LABS: Chloride 101 mmol/L (98-107); Potassium 3.9 mmol/L (3.5-5.1); Sodium 139 mmol/L (136-145)
[2024-11-25 06:23] LABS: Anion Gap 8 (5-15); Calcium 9.8 mg/dL (8.7-10.4); Carbon Dioxide 30 mmol/L (20-31)
[2024-11-25 06:28] LABS: BUN/Creatinine Ratio 12.9 (10.0-20.0); Glucose 89 mg/dL (74-106)
[2024-11-25 06:34] LABS: Basophils # (auto) 0 10 ^3/uL (0-0.2); Basophils % (auto) 0.5 % (0.0-2.0); Eosinophils # (auto) 0.3 10 ^3/uL (0-0.8); Eosinophils % (auto) 5.1 % (0.0-7.0); Hematocrit 36.2 % (36.0-46.0); Lymphocytes # (auto) 1.4 10 ^3/uL (0.4-5.4); Mean Corpuscular Hemoglobin 35.4 pg (28.0-32.0); Mean Corpuscular Hgb Conc. 33.2 g/dL (32.0-36.0); Mean Corpuscular Volume 106.5 fL (80.0-100.0); Monocytes # (auto) 0.6 10 ^3/uL (0-1.3); Monocytes % (auto) 11.3 % (0.0-12.0); Neutrophils # (auto) 3.1 10 ^3/uL (1.6-8.6); Neutrophils % (auto) 57.1 % (37.0-80.0); Nucleated Red Blood Cells % 0.1 %; Platelet Count (auto) 208 10^3/uL (140-450); Red Cell Distribution Width 14.4 % (11.8-14.3); White Blood Cell 5.3 10^3/uL (4.4-10.8)
[2024-11-25 07:08] LABS: Blood Urea Nitrogen 8 mg/dL (9-23)
[2024-11-25] MEDS: VANCOMYCIN 750MG KIT 100 ML IV SCH (11:15)
[2024-11-25] MEDS ORDERED: PATIENTS OWN MEDICATION PO SCH (14:00)
[2024-11-25] MEDS ORDERED: TIZANIDINE 4 MG PO SCH (14:00)
--- NOTE | 2024-11-25 15:33 | DVHPNRES ---
Progress Note Date Seen: Nov 25, 2024 Resident Creating Document: TYLER GONGORA RESIDENT Medical Necessity Reason Pt with a Central, PICC or Fol: Yes The following are medically ne: Dorman Catheter Subjective Review of Systems Tali Adair is a 54-year-old female who comes into the ED with chief complain of sharp/colicky suprapubic abdominal pain, urinary frequency, dysuria and constipation which has been worsening three days prior to her admission. Patient also reports chills, nausea and malaise, and nonhealing left foot ulcer permanently on the hallux with purulent drainage, bilateral leg swelling and erythema. Past medical history: Hypertension, COPD, CVA in 2004, bed-bound, kidney stones multiple UTIs. Surgical history: Spinal surgery Family history: Noncontributory Social history: Lives with daughter in [place] ([id number] ex ). Heavy ethanol abuse (one pt of vodka per day for the past 10 years). Tobacco abuse (approximately 30 pack history of smoking). History of cannabis and methamphetamine abuse. Denies other drug abuse. Allergies: Codeine Home medication: [place], gabapentin and aspirin. Patient seen and examined at bedside. Currently status post left foot debridement. Objective vital signs Vital Sign Date Time Temp Pulse Resp B/P (MAP) Pulse Ox O2 Delivery O2 Flow Rate FiO2 11/25/24 13:00 99.3 99 16 120/81 (94) 93 99.3 11/25/24 12:08 Room Air* 0 21 Total Intake and Output 11/24/24 11/24/24 11/25/24 14:59 22:59 06:59 Intake Total 150 ml 50 ml 750 ml Output Total 400 ml 2100 ml Balance 150 ml -350 ml -1350 ml medications Current Medications Medications Dose Ordered Sig/Kaya Route Start Time Stop Time Status Last Admin Dose Admin Ondansetron HCl 4 mg Q4HPRN PRN IV 11/19/24 22:30 Vancomycin HCl 0 ml @ 0 mls/hr UD IV 11/19/24 22:30 Enoxaparin Sodium 40 mg DAILY SC 11/21/24 10:00 11/25/24 09:38 40 MG Acetaminophen 650 mg Q6HP PRN PO 11/20/24 00:15 Levalbuterol HCl 0.625 mg Q6HP NEB 11/20/24 06:00 11/25/24 12:05 0.625 MG Ipratropium [place] 0.5 mg Q6HPRN PRN NEB 11/20/24 01:45 11/25/24 12:05 0.5 MG Aspirin 81 mg DAILY PO 11/21/24 10:00 11/25/24 09:37 81 MG Gabapentin 400 mg TID PO 11/20/24 14:00 11/25/24 06:01 400 MG Polyethylene Glycol 17 gm DAILY PO 11/21/24 10:00 11/25/24 09:38 17 GM Furosemide 40 mg DAILY PO 11/21/24 10:00 11/25/24 09:37 40 MG Mupirocin 1 applic BID EACHNOSTRI 11/21/24 22:00 11/26/24 21:59 11/25/24 09:38 1 APPLIC Ketorolac Tromethamine 15 mg Q6HPRN PRN IV 11/22/24 15:00 11/27/24 14:59 11/25/24 12:16 15 MG Cefepime/Dextrose 50 ml @ 12.5 mls/hr Q8HR IV 11/23/24 22:00 11/25/24 06:03 12.5 MLS/HR Folic Acid 1 mg/ Multivitamins 10 ml/Magnesium Sulfate 8 meq/ Thiamine HCl 100 mg/Dextrose 1,013.2 ml @ 125.001 mls/hr DAILY@1800 INJ 11/24/24 18:00 11/24/24 19:50 125.001 MLS/HR Atorvastatin Calcium 40 mg HS PO 11/24/24 22:00 11/24/24 23:41 40 MG Vancomycin HCl 100 ml @ 100 mls/hr Q18H IV 11/25/24 11:00 11/25/24 11:15 100 MLS/HR Patient Own Medication 1 TID PRN PO 11/25/24 13:30 Examination Patient lying in bed, in no acute distress General: Lucid, afebrile, mucosae are moist, mild tremors Cardiovascular: Normal S1 and S2. No murmurs, gallops or rubs Respiratory: Normal ventilation mechanics. Clear lung sounds on auscultation Abdomen: Soft, nontender, no organomegaly, normal bowel sounds MSK/skin: Mobilizes 4 limbs. Skin is dry and warm. Lower limb edema improved. Left foot wrapped in gauze. Sacral wound stage III (present on admission) Neurological: Oriented in 3 spheres. No motor no sensitive deficits. Pupils are isocoric and reactive laboratory and microbiology Laboratory Tests 11/25/24 05:37 Test 11/25/24 05:37 Range/Units Serum Glucose 89 74-106 mg/dL Microbiology Date/Time Source Procedure Growth Status 11/24/24 12:37 Foot Left Gram Stain - Final Resulted 11/24/24 12:37 Foot Left Anaerobic Culture - Preliminary Resulted 11/24/24 12:37 Foot Left Aerobic Culture - Preliminary Resulted 11/22/24 08:30 Blood Blood Culture - Preliminary NO GROWTH AFTER 72 HOURS OF INCUBATION. Resulted 11/20/24 05:46 Voided Urine Urine Culture - Final Complete Problem List/Assessment/Plan Problem List/Assessment/Plan # UTI likely acute cystitis UA positive for LE and elevated WBC Final urine cultures: negative Patient has a chronic Dorman catheter with monthly changes On adjusted IV antibiotics (cefepime and vancomycin) # Abdominal pain due constipation likely due to opioid overuse Currently on regular diet and with given oral laxatives Fleet enema denied by patient Held [place] [employer] UDS on admission positive for opiates and cannabinoids # Cellulitis of both lower legs On adjusted IV antibiotics (cefepime and vancomycin) # Non healing left hallux ulcer with abscess - status post op debridement Wound culture from the left foot growing Acinetobacter and MRSA. Nasal swab MRSA positive Completed Foot MRI which showed severe subcutaneous cellulitis, 1.6 cm dorsal subcutaneous fluid collection (compatible with seroma/abscess/gangrene cyst), ruled out osteomyelitis Evaluated by podiatry: Completed debridement, pending surgical culture results On adjusted IV antibiotics (cefepime and vancomycin) # Sacral ulcer stage III On adjusted IV antibiotics (cefepime and vancomycin) # Acute on chronic diastolic congestive heart failure (HFpEF, LVEF 55%) Currently on furosemide 40 mg p.o. daily, on admission requiring IV Lasix Last echocardiogram completed on 06/2024: Normal LV size and dimension, LVEF 55%, grade 1 diastolic dysfunction, rest of exam within normal limits. # Hypokalemia Monitor and replete # Cholelithiasis, no cholecystitis Monitor # COPD, stable Duo Nebs q.6 hours p.r.n. # History of spinal abscess s/p op, currently bed-bound Prophylactic Lovenox Completed lower limb Doppler which ruled out DVT # History of CVA Continue aspirin. Added atorvastatin 40mg PO daily # Avascular necrosis of bilateral femoral heads Evidence in abdomen and pelvis CT. Monitor # Polysubstance abuse Heavy alcohol and smoking abuse. Reports history of methamphetamine abuse UDS positive for opioid and cannabis Gave advice on healthy lifestyle habits Tobacco cessation was prompted, patient is interested in stopping tobacco abuse (on nicotine patches, insulin smoking four cigarettes history of one pack a day now). Patient signed AMA form to smoke cigarettes outside of the hospital. I have explained the risk of doing so, patient understands risks and takes full responsibility of her actions. Ordered abdominal US to evaluate liver parenchyma # Alcohol withdrawal syndrome (CIWA score 3 points) Patient does not require any benzodiazepines at this point. Indicated banana bag Goals of care were discussed with patient for over 23 minutes: Full code status Case was discussed with Dr. Delgado, patient and nurses: Patient currently status post up from incision and drainage from abscess in left foot, pending results of culture to adjust IV antibiotic and evaluate need for prolonged IV antibiotic. If patient requires IV antibiotics, we will be a candidate for SNF placement due to polysubstance abuse. Plan discussed with: Patient, Other (Nurses) My Orders My Orders Orders - TYLER GONGORA RESIDENT Procedure Category Date Status Time Folic Acid... PHA 11/24/24 In Process 18:00 Atorvastatin (Lipitor) PHA 11/24/24 In Process 22:00 Patients Own PHA 11/25/24 In Process Medication 13:30 Dietary Evaluation Review Comments: Increase physical movement if possible, Angel BID for wound healing. Expected Outcomes/Goals: gradual wt loss, healed wound. Date of Service: Nov 25, 2024 Billing Provider: FRAN DELGADO MD Common Visit Codes: [id number] INP/OBS CARE(HIGH) TYLER GONGORA Nov 25, 2024 15:33 FRAN DELGADO MD Nov 26, 2024 15:36
[2024-11-25] MEDS: TIZANIDINE 4 MG PO PRN (15:54)
[2024-11-25] MEDS: THIAMINE HCL 100 MG TAB PO ONE (18:31)
[2024-11-25] MEDS: MAGNESIUM OXIDE 400 MG TAB PO ONE (18:31)
[2024-11-25] MEDS: FOLIC ACID 1 MG TAB PO ONE (18:31)
[2024-11-25] MEDS: MULTIPLE VITAMIN TAB PO ONE (18:31)
--- NOTE | 2024-11-25 20:53 | DVH ---
INDICATION: ABD DISTENTION HX ALCOHOL USE TECHNIQUE: Multiple real-time sonographic images of the abdomen were obtained. COMPARISON: None FINDINGS: Liver is heterogeneous nodular in echogenicity. The liver measures 14.2 cm. No intrahepatic biliary ductal dilatation is noted. The gallbladder wall measures 0.1 cm and is unremarkable. Cholelithiasis. No pericholecystic flui d or edema. The common duct measures 0.4 cm and is unremarkable. The right kidney measures 10.7 cm. No hydronephrosis. The left kidney measures 10.5 cm. No hydronephr osis. The spleen measures 8.8 cm, within normal limits. The echogenicity is within normal limits. The pancreas is not well visualized due to obscuration from bowel gas. The visualized portions of the IVC and aorta are grossly unremarkable. Trace bilateral pleural effusion. IMPRESSION: Hepatic cirrhosis. Cholelithiasis.
[2024-11-26] VITALS (15 sets, daily range): BP systolic 92–131; BP diastolic 57–80; PULSE 61–89; RESP 16–20; TEMP 97.7–98.8; O2SAT 92–100
[2024-11-26 07:18] LABS: Chloride 103 mmol/L (98-107); Potassium 4.1 mmol/L (3.5-5.1); Sodium 137 mmol/L (136-145)
[2024-11-26 07:19] LABS: Anion Gap 9 (5-15); Calcium 9.5 mg/dL (8.7-10.4); Carbon Dioxide 25 mmol/L (20-31)
[2024-11-26 07:24] LABS: Blood Urea Nitrogen 12 mg/dL (9-23); Glucose 88 mg/dL (74-106)
[2024-11-26] MEDS: FOLIC ACID 1 MG TAB PO SCH (10:14)
[2024-11-26] MEDS: MULTIPLE VITAMIN TAB PO SCH (10:14)
[2024-11-26] MEDS: MAGNESIUM OXIDE 400 MG TAB PO SCH (10:15)
[2024-11-26] MEDS: LACTULOSE 20Gm/30ML SOLN PO SCH (10:15)
[2024-11-26] MEDS: THIAMINE HCL 100 MG TAB PO SCH (10:15)
[2024-11-26] MEDS: FUROSEMIDE 40 MG TAB PO SCH (10:16)
--- NOTE | 2024-11-26 14:37 | DVHPNRES ---
Progress Note Date Seen: Nov 26, 2024 Resident Creating Document: TYLER GONGORA RESIDENT Medical Necessity Reason Pt with a Central, PICC or Fol: Yes The following are medically ne: Dorman Catheter Subjective Review of Systems Tali Adair is a 54-year-old female who comes into the ED with chief complain of sharp/colicky suprapubic abdominal pain, urinary frequency, dysuria and constipation which has been worsening three days prior to her admission. Patient also reports chills, nausea and malaise, and nonhealing left foot ulcer permanently on the hallux with purulent drainage, bilateral leg swelling and erythema. Past medical history: Hypertension, COPD, CVA in 2004, bed-bound, kidney stones multiple UTIs. Surgical history: Spinal surgery Family history: Noncontributory Social history: Lives with daughter in [place] ([id number] ex ). Heavy ethanol abuse (one pt of vodka per day for the past 10 years). Tobacco abuse (approximately 30 pack history of smoking). History of cannabis and methamphetamine abuse. Denies other drug abuse. Allergies: Codeine Home medication: [place], gabapentin and aspirin. Patient seen and examined at bedside. Currently status post left foot debridement. Patient has a known complaints. Objective vital signs Vital Sign Date Time Temp Pulse Resp B/P (MAP) Pulse Ox O2 Delivery O2 Flow Rate FiO2 11/26/24 10:42 77 20 92 11/26/24 10:16 108/68 11/26/24 08:56 98.8 98.8 11/26/24 08:00 Room Air* 0 21 Total Intake and Output 11/25/24 11/25/24 11/26/24 15:00 23:00 07:00 Intake Total 750 ml 1798 ml 1250 ml Output Total 1400 ml 1300 ml Balance 750 ml 398 ml -50 ml medications Current Medications Medications Dose Ordered Sig/Kaya Route Start Time Stop Time Status Last Admin Dose Admin Vancomycin HCl 0 ml @ 0 mls/hr UD IV 11/19/24 22:30 Enoxaparin Sodium 40 mg DAILY SC 11/21/24 10:00 11/26/24 10:16 40 MG Acetaminophen 650 mg Q6HP PRN PO 11/20/24 00:15 Levalbuterol HCl 0.625 mg Q6HP NEB 11/20/24 06:00 11/26/24 10:44 0.625 MG Ipratropium [place] 0.5 mg Q6HPRN PRN NEB 11/20/24 01:45 11/25/24 12:05 0.5 MG Aspirin 81 mg DAILY PO 11/21/24 10:00 11/26/24 10:13 81 MG Gabapentin 400 mg TID PO 11/20/24 14:00 11/26/24 06:13 400 MG Cefepime/Dextrose 50 ml @ 12.5 mls/hr Q8HR IV 11/23/24 22:00 11/26/24 06:11 12.5 MLS/HR Atorvastatin Calcium 40 mg HS PO 11/24/24 22:00 11/25/24 21:10 40 MG Vancomycin HCl 100 ml @ 100 mls/hr Q18H IV 11/25/24 11:00 11/26/24 05:01 100 MLS/HR Patient Own Medication 1 TID PRN PO 11/25/24 13:30 11/26/24 13:30 1 Furosemide 20 mg DAILY PO 11/26/24 10:00 11/26/24 10:16 20 MG Folic Acid 1 mg DAILY PO 11/26/24 10:00 11/26/24 10:14 1 MG Multivitamins 1 tab DAILY PO 11/26/24 10:00 11/26/24 10:14 1 TAB Magnesium Oxide 400 mg DAILY PO 11/26/24 10:00 11/26/24 10:15 400 MG Thiamine HCl 100 mg DAILY PO 11/26/24 10:00 11/26/24 10:15 100 MG Lactulose 30 ml DAILY PO 11/26/24 10:00 11/26/24 10:15 30 ML Examination Patient lying in bed, in no acute distress General: Lucid, afebrile, mucosae are moist, mild tremors Cardiovascular: Normal S1 and S2. No murmurs, gallops or rubs Respiratory: Normal ventilation mechanics. Clear lung sounds on auscultation Abdomen: Soft but distended, nontender, no organomegaly, normal bowel sounds MSK/skin: Mobilizes 4 limbs. Skin is dry and warm. Lower limb edema improved. Left foot wrapped in gauze. Sacral wound stage III (present on admission) Neurological: Oriented in 3 spheres. No motor no sensitive deficits. Pupils are isocoric and reactive laboratory and microbiology Laboratory Tests 11/26/24 05:16 11/25/24 05:37 Test 11/26/24 05:16 Range/Units Serum Glucose 88 74-106 mg/dL Microbiology Date/Time Source Procedure Growth Status 11/24/24 12:37 Foot Left Gram Stain - Final Resulted 11/24/24 12:37 Foot Left Anaerobic Culture - Preliminary Resulted 11/24/24 12:37 Foot Left Aerobic Culture - Preliminary Resulted 11/22/24 08:30 Blood Blood Culture - Preliminary NO GROWTH AFTER 72 HOURS OF INCUBATION. Resulted 11/20/24 05:46 Voided Urine Urine Culture - Final Complete Problem List/Assessment/Plan Problem List/Assessment/Plan # UTI likely acute cystitis UA positive for LE and elevated WBC Final urine cultures: negative Patient has a chronic Dorman catheter with monthly changes On adjusted IV antibiotics (cefepime and vancomycin) # Abdominal pain due constipation likely due to opioid overuse Currently on regular diet and with given oral laxatives Fleet enema denied by patient Held [place] UDS on admission positive for opiates and cannabinoids # Cellulitis of both lower legs On adjusted IV antibiotics (cefepime and vancomycin) # Non healing left hallux ulcer with abscess - status post op debridement Wound culture from the left foot growing Acinetobacter and MRSA. Nasal swab MRSA positive Completed Foot MRI which showed severe subcutaneous cellulitis, 1.6 cm dorsal subcutaneous fluid collection (compatible with seroma/abscess/gangrene cyst), ruled out osteomyelitis Evaluated by podiatry: Completed debridement, pending surgical culture results (preliminary staphylococci aureus pending susceptibility) On adjusted IV antibiotics (cefepime and vancomycin) # Sacral ulcer stage III On adjusted IV antibiotics (cefepime and vancomycin) # Acute on chronic diastolic congestive heart failure (HFpEF, LVEF 55%) Currently on furosemide 40 mg p.o. daily, on admission requiring IV Lasix Last echocardiogram completed on 06/2024: Normal LV size and dimension, LVEF 55%, grade 1 diastolic dysfunction, rest of exam within normal limits. # Hypokalemia Monitor and replete # Cholelithiasis, no cholecystitis Monitor # COPD, stable Duo Nebs q.6 hours p.r.n. # History of spinal abscess s/p op, currently bed-bound Prophylactic Lovenox Completed lower limb Doppler which ruled out DVT # History of CVA Continue aspirin. Added atorvastatin 40mg PO daily # Avascular necrosis of bilateral femoral heads Evidence in abdomen and pelvis CT. Monitor # Polysubstance abuse Heavy alcohol and smoking abuse. Reports history of methamphetamine abuse UDS positive for opioid and cannabis Gave advice on healthy lifestyle habits Tobacco cessation was prompted, patient is interested in stopping tobacco abuse (on nicotine patches, insulin smoking four cigarettes history of one pack a day now). Patient signed AMA form to smoke cigarettes outside of the hospital. I have explained the risk of doing so, patient understands risks and takes full responsibility of her actions. Ordered abdominal US to evaluate liver parenchyma # Alcohol withdrawal syndrome (CIWA score 3 points) Patient does not require any benzodiazepines at this point. Indicated multivitamins Goals of care were discussed with patient for over 23 minutes: Full code status Case was discussed with Dr. Delgado, patient and nurses: Patient currently status post up from incision and drainage from abscess in left foot, pending results (preliminary staphylococci aureus, pending susceptibility) of culture to adjust IV antibiotic and evaluate need for prolonged IV antibiotic. If patient requires IV antibiotics, we will be a candidate for SNF placement due to polysubstance abuse. Plan discussed with: Patient, Other (Nurses) My Orders My Orders Orders - TYLER GONGORA RESIDENT Procedure Category Date Status Time Furosemide Tablet PHA 11/26/24 In Process (Lasix Tablet) 10:00 Folic Acid Tablet PHA 11/26/24 In Process 10:00 Multiple Vitamin PHA 11/26/24 In Process Tablet (Mvi Tab) 10:00 Magnesium Oxide PHA 11/26/24 In Process Tablet (Mag-Ox Tablet) 10:00 Thiamine Tab PHA 11/26/24 In Process 10:00 Abdomen Complete US 11/25/24 Resulted Sonogram 16:14 Lactulose Oral PHA 11/26/24 In Process 10:00 Dietary Evaluation Review Comments: Increase physical movement if possible, Angel BID for wound healing. Expected Outcomes/Goals: gradual wt loss, healed wound. Date of Service: Nov 26, 2024 Billing Provider: FRAN DELGADO MD Common Visit Codes: [id number] INP/OBS CARE(HIGH) TYLER GONGORA RESIDENT Nov 26, 2024 14:37 FRAN DELGADO MD Nov 26, 2024 15:55
[2024-11-26] MEDS: ACETAMINOPHEN 325 MG TAB PO PRN (23:02)
[2024-11-27] VITALS (11 sets, daily range): BP systolic 111–140; BP diastolic 76–82; PULSE 65–84; RESP 16–20; TEMP 97.4–98.2; O2SAT 93–100
[2024-11-27 06:07] LABS: Chloride 104 mmol/L (98-107); Sodium 137 mmol/L (136-145)
[2024-11-27 06:08] LABS: Anion Gap 6 (5-15); Carbon Dioxide 27 mmol/L (20-31)
[2024-11-27 06:13] LABS: BUN/Creatinine Ratio 16.4 (10.0-20.0); Blood Urea Nitrogen 12 mg/dL (9-23); Glucose 82 mg/dL (74-106)
[2024-11-27] MEDS ORDERED: FOLI-119 PO (11:22)
[2024-11-27] MEDS ORDERED: GABA-1251 PO (11:22)
[2024-11-27] MEDS ORDERED: BACL20TA PO (11:22)
[2024-11-27] MEDS ORDERED: ASPI-325 PO (11:22)
[2024-11-27] MEDS ORDERED: MULTTAB99 PO (11:22)
[2024-11-27] MEDS ORDERED: THIA100T10 PO (11:22)
[2024-11-27] MEDS ORDERED: LACT10SO3 PO (11:22)
[2024-11-27] MEDS ORDERED: CLIN150C18 PO (11:22)
[2024-11-27] MEDS ORDERED: ATOR20TA50 PO (11:22)
--- NOTE | 2024-11-27 11:33 | DVHDSRES ---
Discharge Summary Date of Admission Resident Creating Document: TYLER GONGORA RESIDENT Nov 19, 2024 at 22:12 Date of Discharge: Nov 27, 2024 Labs/Diagnostic Data: Laboratory Results Test 11/27/24 05:26 11/25/24 05:37 11/24/24 01:45 11/22/24 05:49 Sodium Level 137 mmol/L (136-145) Potassium Level 4.0 mmol/L (3.5-5.1) Chloride Level 104 mmol/L (98-107) Carbon Dioxide Level 27 mmol/L (20-31) Anion Gap 6 (5-15) Blood Urea Nitrogen 12 mg/dL (9-23) Creatinine 0.73 mg/dL (0.550-1.02) Glomerular Filtration Rate Calc 97 mL/min (>90) BUN/Creatinine Ratio 16.4 (10.0-20.0) Serum Glucose 82 mg/dL (74-106) Calcium Level 10.0 mg/dL (8.7-10.4) White Blood Count 5.3 10^3/uL (4.4-10.8) Red Blood Count 3.40 10^6/uL (4.0-5.20) Hemoglobin 12.0 g/dL (12.2-16.2) Hematocrit 36.2 % (36.0-46.0) Mean Corpuscular Volume 106.5 fL (80.0-100.0) Mean Corpuscular Hemoglobin 35.4 pg (28.0-32.0) Mean Corpuscular Hemoglobin Concent 33.2 g/dL (32.0-36.0) Red Cell Distribution Width 14.4 % (11.8-14.3) Platelet Count 208 10^3/uL (140-450) Mean Platelet Volume 7.9 fL (6.9-10.8) Neutrophils (%) (Auto) 57.1 % (37.0-80.0) Lymphocytes (%) (Auto) 26.0 % (10.0-50.0) Monocytes (%) (Auto) 11.3 % (0.0-12.0) Eosinophils (%) (Auto) 5.1 % (0.0-7.0) Basophils (%) (Auto) 0.5 % (0.0-2.0) Neutrophils # (Auto) 3.1 10 ^3/uL (1.6-8.6) Lymphocytes # (Auto) 1.4 10 ^3/uL (0.4-5.4) Monocytes # (Auto) 0.6 10 ^3/uL (0-1.3) Eosinophils # (Auto) 0.3 10 ^3/uL (0-0.8) Basophils # (Auto) 0 10 ^3/uL (0-0.2) Nucleated Red Blood Cells 0.1 % Random Vancomycin Level 12.2 ug/mL (5-10) Vancomycin Level Trough 24.3 ug/mL (5-10) Vitamin B12 Level 634 pg/mL (211-911) Test 11/20/24 05:46 11/20/24 04:22 11/19/24 23:19 11/19/24 10:42 Urine Color Yellow (Yellow) Urine Clarity Cloudy (Clear) Urine pH 6.0 (5.0-9.0) Urine Specific [place] 1.019 (1.001-1.035) Urine Protein 1+ (Negative) Urine Ketones Trace (Negative) Urine Blood 2+ /uL (Negative) Urine Nitrite 2+ (Negative) Urine Bilirubin Negative (Negative) Urine Urobilinogen Normal mg/dL (Negative) Urine Leukocyte Esterase 3+ /uL (Negative) Urine RBC 46 /hpf (0 - 4) Urine WBC Clumps Present /hpf (None Seen) Urine Microscopic WBC 1508 /HPF (0-5) Urine Squamous Epithelial Cells Mod /hpf (<5) Urine Bacteria Few /hpf (None Seen) Urine Mucus Few (None Seen) Urine Yeast with Hyphae Present /hpf Urine Yeast (Budding) Occasional /hpf (None Urine Glucose Normal mg/dL (Normal) Urine Opiates Screen Pos (NEGATIVE) Urine Fentanyl Screen Neg (NEGATIVE) Urine Barbiturates Screen Neg (NEGATIVE) Urine Phencyclidine Screen Neg (NEGATIVE) Urine Amphetamines Screen Neg (NEGATIVE) Urine Benzodiazepines Screen Neg (NEGATIVE) Urine Cocaine Screen Neg (NEGATIVE) Urine Cannabinoids Screen Pos (NEGATIVE) Phosphorus Level 2.7 mg/dL (2.4-5.1) Erythrocyte Sedimentation Rate 13 mm/hr (0-20) Magnesium Level 2.0 mg/dL (1.6-2.6) C-Reactive Protein High Sensitivity 0.70 mg/dL (<1.0) Thyroid Stimulating Hormone (TSH) 0.96 uIU/mL (0.55-4.78) Total Bilirubin 0.8 mg/dL (0.2-1.0) Aspartate Amino Transferase (AST) 24 U/L (13-40) Alanine Aminotransferase (ALT) 13 U/L (7-40) Alkaline Phosphatase 74 U/L (46-116) Total Protein 7.4 g/dL (5.7-8.2) Albumin 4.4 g/dL (3.2-4.8) Lipase 24 U/L (12-53) Other Laboratory Tests 11/27/24 05:26 11/25/24 05:37 Brief Hx & Hospital Course: Tali Adair is a 54-year-old female who comes into the ED with chief complain of sharp/colicky suprapubic abdominal pain, urinary frequency, dysuria and constipation which has been worsening three days prior to her admission. Patient also reports chills, nausea and malaise, and nonhealing left foot ulcer permanently on the hallux with purulent drainage, bilateral leg swelling and erythema. Past medical history: Hypertension, COPD, CVA in 2004, bed-bound, kidney stones multiple UTIs. Surgical history: Spinal surgery Family history: Noncontributory Social history: Lives with daughter in [place] ([id number] ). Heavy ethanol abuse (one pt of vodka per day for the past 10 years). Tobacco abuse (approximately 30 pack history of smoking). History of cannabis and methamphetamine abuse. Denies other drug abuse. Allergies: Codeine Home medication: [place], gabapentin and aspirin. Brief hospital course: UTI symptomatic by abdominal pain associated with acute on chronic diastolic congestive heart failure, cellulitis and nonhealing left hallux ulcer with abscess status post op of incision and drainage Roxie requiring on admission IV diuretics, IV antibiotic (cefepime and vancomycin) and wound care of left lower extremity. Completed food MRI which shows subcutaneous cellulitis, 1.6 cm dorsal subcutaneous fluid collection and no osteomyelitis, evaluated by locomotive crane engineer who indicated incision and drainage of wound (wound cultures positive for Acinetobacter and MRSA, surgical culture positive for MRSA which is sensory to clindamycin). Due to constipation and had to complete Fleet enema, currently is with scheduled lactulose and docusate p.r.n. patient has had history of heavy drinking, abdomen was distended and lower limb were had edema, completed abdominal ultrasound which showed liver cirrhosis and cholelithiasis, recommended to be evaluated by GI as outpatient for follow-up. Patient hemodynamically stable, asymptomatic, in condition to be discharged home. Was granted under optimal medical therapy (gave clindamycin for 14 days), gave advice on healthy lifestyle habits (especially alcohol abuse), and follow up as outpatient with PCP, Podiatry and GI specialist. DIAGNOSIS # UTI likely acute cystitis # Abdominal pain due constipation likely due to opioid overuse # Cellulitis of both lower legs # Non healing left hallux ulcer with abscess - status post op of incision and drainage # Sacral ulcer stage III - Present on admission # Acute on chronic diastolic congestive heart failure (HFpEF, LVEF 55%) # Hypokalemia # Cholelithiasis, no cholecystitis # COPD, stable # History of spinal abscess s/p op, currently bed-bound # History of CVA # Avascular necrosis of bilateral femoral heads # Polysubstance abuse # Liver cirrhosis # Alcohol withdrawal syndrome (CIWA score 3 points) Goals of care were discussed with patient for over 23 minutes: Full code status Case was discussed with Dr. Delgado, patient and nurses. Examination Patient lying in bed, in no acute distress General: Lucid, afebrile, mucosae are moist, mild tremors Cardiovascular: Normal S1 and S2. No murmurs, gallops or rubs Respiratory: Normal ventilation mechanics. Clear lung sounds on auscultation Abdomen: Soft but distended, nontender, no organomegaly, normal bowel sounds MSK/skin: Mobilizes 4 limbs. Skin is dry and warm. Lower limb edema improved. Left foot wrapped in gauze. Sacral wound stage III (present on admission) Neurological: Oriented in 3 spheres. No motor no sensitive deficits. Pupils are isocoric and reactive Consults/Reason for consult Podiatry Operative Report - 2 Report Details Date: 11/24/24 Preop Diagnosis: 1. Left foot abscess 2. Left foot cellulitis 3. Left foot diabetic ulcer Postop Diagnosis: Same as preop Surgeon: Zheng Hull MD Anesthesiologist: See anesthesia Anesthesia: Mac Consent: The patient was informed of the risks and benefits of the procedure. These include but are not limited to complications of anesthesia, postoperative infection, incomplete relief of symptoms, recurrence of symptoms, damage to blood vessels, nerves and tendons, deep venous thrombosis, pulmonary embolism and possible need for repeat surgery in the future. Complications: None Estimated Blood Loss: Minimal Fluids: See anesthesia Findings: Consistent diagnosis Indications for Surgery: Worsening left foot wounds Name of Procedure Performed 1. Left foot I&D to bone (62142) 2. Left foot delayed closure (36942) Procedure Details Procedure Details: PRE-PROCEDURE INFORMATION: In the pre-op holding area, the extremity to be operated on was clearly marked and the patient verified correct laterality of the marking. The patient was transferred to the OR table and placed in a supine position. A timeout was performed in which identification of the correct patient, procedure, location, and materials was done. The left foot and leg were prepped and draped in normal sterile fashion. DESCRIPTION OF PROCEDURE: Attention was directed to the left where area of fluctuance was noted. An incision was made over this area and was deepened through blunt dissection. The incision was deepened to the level of abscess and bone. Care was taken to the dissection to avoid any neurovascular and tendinous structures. The incision was deepened to the bone, and the abscess appeared to be purulent fluid consistent with pus. The cortices of the bone was then removed with Silver an all necrotic tissue. After the abscess was drained, the area was irrigated with 3 L normal saline using cysto tubing. Deep cultures were then obtained from the wound. The area was then inspected and any areas of tracking, especially along the tendons were also drained. A delayed closure was then performed using 2-0 nylon after was deemed appropriate with no longer concern for infection. POSTOPERATIVE INFORMATION: The patient tolerated the above noted procedure and anesthesia well and was transferred to the PACU with vital signs stable, and vascular status intact with capillary refill intact to all digits. Patient can return to the floor. Continue cultures were taken. Patient can be discharged home on p.o. antibiotics. Condition Good Disposition 2 Still a Patient ZHENG HULL DPM Nov 24, 2024 12:42 DICTATED BY:ZHENG HULL DPM DICTATED DATE/TIME:11/24/24 1242 Operations or Procedures Exam: CT CT AB PEL WO CON-NO ORAL OR IV History: LLQ PAIN Comparison Study: None Technique: Multidetector spiral CT of the abdomen and pelvis was performed from lung bases to pubic symphysis. Imaging was performed without IV contrast. Axial, coronal and sagittal multiplanar reformats were obtained from the axial data set by the technologist. Radiation dose : Abdomen/Pelvis: CTDIvol 5 mGy, DLP 264.42 mGy*cm. Findings: Evaluation of solid organs is limited due to lack of intravenous contrast use. Lung Bases: No acute or significant lung base finding. Normal heart size. No pleural or pericardial effusion. Liver: The liver is normal in size. No focal lesions. Gallbladder and biliary Tree: Cholelithiasis noted without secondary findings of cholecystitis or biliary obstruction. Spleen: Unremarkable Pancreas: The pancreas is grossly normal in appearance. Adrenal Glands: Unremarkable Kidneys: Kidneys are grossly normal without calculi or hydronephrosis. Bladder: Bladder is decompressed with a Dorman catheter and cannot be adequately assessed. Bowel: The stomach is grossly normal in appearance. Small bowel and colon are normal in caliber and distribution. The appendix is not visualized; however, no secondary findings of acute appendicitis identified. Ascites: Absent Lymphadenopathy: No mesenteric, retroperitoneal or periportal lymphadenopathy. Abdominal wall and Mesentery: Unremarkable. Vasculature: The visualized abdominal aorta is normal in size and caliber. Evaluation of abdominal and pelvic vessels is limited due to lack of intravenous contrast. Pelvic Organs: Unremarkable Musculoskeletal: Levoscoliosis with associated multilevel degenerative disease. Suspect avascular necrosis of the bilateral femoral heads. IMPRESSION: 1. No acute abdominal or pelvic findings. No hydronephrosis or nephrolithiasis. Cholelithiasis. Avascular necrosis of the bilateral femoral heads. Radiation optimization: All CT scans at this facility use at least one of these dose optimization techniques: Automated exposure control mA and/or kV adjustment per patient size (includes targeted exams where dose is matched to clinical indication) or iterative reconstruction. HS:Y ATED BY: JUSTIN PEDRO MD DICTATED DATE/TIME: 11/19/24 1112 CHEST RADIOGRAPH Indication: sob Technique: Single frontal view of the chest was obtained COMPARISON: XY CHEST PORTABLE on DOS: 07/01/24 FINDINGS: Lines and Tubes: None Lungs: Clear Pleura: No effusion. No pneumothorax. Cardiomediastinal contours: Unremarkable Bones: Unremarkable IMPRESSION: 1. No acute disease. ATED BY: FRANCIS DUNN MD DICTATED DATE/TIME: 11/19/24 2306 Bilateral lower extremity venous duplex Clinical History: bilateral leg edema, redness, and pain Comparison: US BILAT LOWER DVT on DOS: 06/30/24 Technique: Duplex doppler evaluation of the deep venous systems of both lower extremities from the common femoral veins to the popliteal veins including color doppler and spectral/pulsed waveform analysis was performed. Findings: RIGHT SIDE: The common femoral vein demonstrates appropriate compressibility and waveform variability. There is compressibility/patency of the great saphenous vein at the proximal thigh. The femoral vein demonstrates appropriate compressibility and waveform variability. The deep femoral vein demonstrates appropriate compressibility and waveform variability. The popliteal vein demonstrates appropriate compressibility and waveform variability. LEFT SIDE: The common femoral vein demonstrates appropriate compressibility and waveform variability. There is compressibility/patency of the great saphenous vein at the proximal thigh. The femoral vein demonstrates appropriate compressibility and waveform variability. The deep femoral vein demonstrates appropriate compressibility and waveform variability. The popliteal vein demonstrates appropriate compressibility and waveform variability. Impression: No evidence of right or left femoropopliteal venous thrombosis. ATED BY: FRANCIS DUNN MD DICTATED DATE/TIME: 11/20/24 0014 EXAMINATION: CT L FOOT WO CONTRAST INDICATION: cellulitis, r/o osteomyelitis COMPARISON: None TECHNIQUE: CT of the rightleft foot was performed without contrast. Volume transverse images were obtained reconstructed in multiple planes using bone and soft tissue algorithms. CONTRAST: None FINDINGS: There is a large amount of subcutaneous edema and there is mari fluid along the posterior compartment fascia. Foot bones are osteopenic in the amount dorsal fluid and foot is extraordinary. Do not see definite destructive change involving the foot bones but I would highly recommend MRI examination 2 limited quality osteomyelitis. IMPRESSION: 1. Severe cellulitis. Follow-up MRI examination is suggested further assessment ATED BY: TERRY MARCELO MD DICTATED DATE/TIME: 11/19/24 1553 EXAM: MRI MRI L FOOT WO CONTRAST HISTORY: r/o left foot osteomyelitis COMPARISON: CT CT L FOOT WO CONTRAST on DOS: 11/19/24 TECHNIQUE: Multiplanar, multisequence MRI of the left foot was performed. FINDINGS: The visualized osseous structures demonstrate normal cortical and bone marrow signal intensity without evidence of fracture, trabecular bony injury, or dislocation. No joint effusion. Hallux sesamoid complex is intact. No joint effusion. The Lisfranc ligament is intact. The visualized portions of tibialis posterior, flexor hallucis longus, and flexor digitorum tendons are intact. Visualized portions of peroneus longus and brevis tendons are intact. Visualized portions of the tibialis anterior, extensor digitorum, and extensor hallucis tendons are intact. The partially visualized plantar fascia is intact. There is no evidence of intermetatarsal bursitis or Martin's neuroma. No significant muscle atrophy is noted. Severe dorsal soft tissue swelling noted. A 1.6 x 1 cm subcutaneous fluid collection on dorsal aspect of the foot at the level of 1st metatarsal base noted. IMPRESSION: 1. Severe subcutaneous edema/ cellulitis. 2. A 1.6 cm dorsal subcutaneous fluid collection that is incompletely evaluated on this unenhanced study. A may reflect seroma, abscess or ganglion cyst. Correlation by ultrasound or contrast enhanced MRI could be completed if clinically indicated. 3. No evidence of acute osteomyelitis. ATED BY: SOILA MEJIA MD DICTATED DATE/TIME: 11/20/24 1703 INDICATION: ABD DISTENTION HX ALCOHOL USE TECHNIQUE: Multiple real-time sonographic images of the abdomen were obtained. COMPARISON: None FINDINGS: Liver is heterogeneous nodular in echogenicity. The liver measures 14.2 cm. No intrahepatic biliary ductal dilatation is noted. The gallbladder wall measures 0.1 cm and is unremarkable. Cholelithiasis. No pericholecystic fluid or edema. The common duct measures 0.4 cm and is unremarkable. The right kidney measures 10.7 cm. No hydronephrosis. The left kidney measures 10.5 cm. No hydronephrosis. The spleen measures 8.8 cm, within normal limits. The echogenicity is within normal limits. The pancreas is not well visualized due to obscuration from bowel gas. The visualized portions of the IVC and aorta are grossly unremarkable. Trace bilateral pleural effusion. IMPRESSION: Hepatic cirrhosis. Cholelithiasis. ATED BY: CHRISTIANO AGUSTIN MD DICTATED DATE/TIME: 11/25/242047 Condition at Discharge: Fair Final Diagnosis/Problems List # UTI likely acute cystitis # Abdominal pain due constipation likely due to opioid overuse # Cellulitis of both lower legs # Non healing left hallux ulcer with abscess - status post op of incision and drainage # Sacral ulcer stage III - Present on admission # Acute on chronic diastolic congestive heart failure (HFpEF, LVEF 55%) # Hypokalemia # Cholelithiasis, no cholecystitis # COPD, stable # History of spinal abscess s/p op, currently bed-bound # History of CVA # Avascular necrosis of bilateral femoral heads # Polysubstance abuse # Liver cirrhosis # Alcohol withdrawal syndrome (CIWA score 3 points) Discharge Disposition: Home Discharge Instruct/Medications Diet: Cardiac 2g Na,low cholest Diet comment: Hepatoprotector Activity: No Restrictions, As Tolerated Follow Up/Referral: PCP Podiatry GI (liver cirrhosis) Medications: Per EMR Discharge Statement: "Patient was advised to return to the ER or call 911 if any headaches, dizziness, shortness of breath, chest pain, abdominal pain, bleeding, fevers, or worsening of medical condition. Patient was counseled about treatment plan, medications, possible side effects, patientverbalized understanding. All questions were answered to the best of my ability. This discharge took greater then 30 minutes in planning, reviewing documentation, counseling the patient, and discussing with other team members." ASSESSMENT ASSESSMENT Assessment CHF, cellulitis and abscess of left foot status post I&D Date of Service: Nov 27, 2024 Billing Provider: FRAN DELGADO MD Common Visit Codes: 24321-WHQ/OBS DISCH DAY >30min TYLER GONGORA Nov 27, 2024 11:33 FRAN DELGADO MD Nov 27, 2024 21:03
== END 2024-11-27 16:00 | disposition home or self-care (01) | DRG 364 ==
LOC: EDBD 10:15 → ER 10:15 → OVERFLOW 22:12 → TELE-E-ADS 11-20 09:08 → EAST 11-20 13:49
PROVIDERS: ADMIT Student in an Organized Health Care Education/Training Program; ATTEND Student in an Organized Health Care Education/Training Program
PROC: 0QBP0ZZ Excision of Left Metatarsal, Open Approach (ICD-10-PCS; principal; 2024-11-24 12:19)
DX: L03.116 Cellulitis of left lower limb (principal); I50.33 Acute on chronic diastolic (congestive) heart failure; L89.153 Pressure ulcer of sacral region, stage 3; N30.00 Acute cystitis without hematuria; L03.115 Cellulitis of right lower limb; E87.1 Hypo-osmolality and hyponatremia; M87.851 Other osteonecrosis, right femur; K59.00 Constipation, unspecified; K80.20 Calculus of gallbladder without cholecystitis without obstruction; E87.6 Hypokalemia; J44.9 Chronic obstructive pulmonary disease, unspecified; F17.210 Nicotine dependence, cigarettes, uncomplicated; M87.852 Other osteonecrosis, left femur; I10 Essential (primary) hypertension; Z82.49 Family history of ischemic heart disease and other diseases of the circulatory system; Z98.51 Tubal ligation status; Z87.440 Personal history of urinary (tract) infections; Z86.73 Personal history of transient ischemic attack (TIA), and cerebral infarction without residual deficits; Z87.442 Personal history of urinary calculi; Z79.899 Other long term (current) drug therapy; Z88.5 Allergy status to narcotic agent; Z79.82 Long term (current) use of aspirin; Z74.01 Bed confinement status
CPT/HCPCS: 36415; 71045; 73700; 73718; 74176; 76700; 80048; 80053; 80202; 80307; 81001; 82565; 82607; 83690; 83735; 84100; 84443; 85025; 85652; 86141; 87040; 87070; 87075; 87077; 87081; 87086; 87186; 87205; 93005; 93970; 94640; G0378; J1885; J2003; J2250; J2405; J2704; J3480; J3490